=== PATIENT | female | born 1965 | race Caucasian/White ===

== ENCOUNTER 2024-05-23 13:18 | Outpatient (AMB) | payer OTHER, SELFPAY ==
--- NOTE | 2024-05-23 13:31 | A.OFFVIS_ITS ---
Vital Signs 05/23/24 13:32 Height 5 ft 9 in Weight 197 lb BMI 29.1 BP 118/72 Blood Pressure Location Lt brachial Position Sitting Pulse 85 Pulse Source Pulse Oximeter Pulse Oximetry (%) 95 Oxygen Delivery Method Room Air Intake Visit Reasons: Arthritis Intake Note: Patient presents follow up arthritis and looking for specialist H-eds, bilat knee braces, help with muscle spasm and muscle loss Allergies No Known Allergies Allergy (Verified 05/23/24 13:35) HPI HPI Arthritis: Details: She continues to have pain but improvement on diclofenac 50 mg twice a day. She requires crutches to ambulate once a week due to uncontrolled pain. She also has instability in her right knee worse than her left knee and feels that her knees being dislocated. She has been wearing a right medial youth associate brace with benefit. She has not having a regular exercise routine recently. She is working on getting a spa pool. She had an orthopedic surgeon evaluation at [facility] in [place] who recommended to her that he would be willing to operate on her if she is ready. She is concerned that the operation we will not fix the increased laxity in her knees resulting in further surgeries/reconstruction. [facility] Medical History (Updated 05/23/24 @ 21:13 by Speedy Lee MD) H/O mammogram Osteoporosis Raquel-Danlos syndrome Cervicalgia Carpal tunnel syndrome Surgical History H/O colonoscopy Family History Father Colon cancer Mother Melanoma Social History Alcohol intake: current Comment: 3 galsses a week Patient Tobacco Use Status: Former Tobacco user Review of Systems Const All systems reviewed & are unremarkable except as noted in HPI and below Physical Exam Vital Signs: Last Vital Signs Pulse 85 05/23/24 13:32 BP 118/72 05/23/24 13:32 Pulse Ox 95 05/23/24 13:32 Oxygen Delivery Method Room Air 05/23/24 13:32 BMI result Body Mass Index 29.1 Const Other: General: Comfortable CVS: RRR Respiratory: clear to auscultation bilaterally. Good respiratory effort Skin: No lesions seen MSK: Initially she had right knee medial youth associate brace on. Tender to palpate bilateral knees. Good range of motion. Assessment & Plan Assessment & Plan (1) Raquel-Danlos syndrome: Comment: Hypomobile type. Contributing to increased laxity in knees leading to instability. She has had benefit with right medial youth associate brace but it is not the right fit. We discussed importance of having a regular exercise routine for lower extremity strengthening. Code(s): Q79.60 - Arquel-Danlos syndrome, unspecified Category: Medical Plan: Encouraged at least 30 minutes of exercise a day Increased diclofenac 75 mg twice a day Lab up-to-date on long-term NSAID 03/2024 reviewed on patient's portal on her phone. Requesting CMP results I recommend that she start physical therapy for lower extremity strengthening. She has had benefit with massages in the setting of misalignment of her right knee contributing to misalignment in her back radiating to uncontrolled pain. I have given her a new order for PT with myofascial release to help improve pain from instability of right knee. Letter for massage insurance coverage prepared for patient. Prescription for right knee brace medial youth associate given to patient custom to improve fit and knee stability. It is medically necessary. Return to clinic in 3 months (2) Osteoarthritis of knees, bilateral: Comment: Uncontrolled knee pain. Previously failed cortisone injections, Celebrex, meloxicam, gel 1 hyaluronic acid injections in bilateral knees 11/2021 and 07/2022. She has had benefit on diclofenac but pain still limits her ambulation requiring crutches as times. She has had benefit with using right medial youth associate brace. Code(s): M17.0 - Bilateral primary osteoarthritis of knee Category: Medical Qualifiers: Osteoarthritis type: primary Qualified Code(s): M17.0 - Bilateral primary osteoarthritis of knee Plan: Encouraged at least 30 minutes of exercise a day Increased diclofenac 75 mg twice a day with food. Can consider lowering dose in the future if pain is better controlled with regular exercise regimen Lab up-to-date on long-term NSAID 03/2024 reviewed on patient's portal on her phone. Requesting CMP results to be faxed to my office. I recommend that she start physical therapy for lower extremity strengthening. She has had benefit with massages in the setting of misalignment of her right knee contributing to misalignment in her back and uncontrolled pain. I have given her a new order for PT with myofascial release to help improve pain from instability of right knee. Letter for massage insurance coverage prepared for patient. I have given her another prescription for right medial youth associate brace for better fit and improved stability of knee. It is medically necessary. Return to clinic in 3 months Orders: Orders PT Evaluation and Treatment 05/23/24 M17.0 - Bilateral primary osteoarthritis of knee, Q79.60 - Raquel-Danlos syndrome, unspecified Medications: New leg brace (Knee Support Brace) As directed Right knee medial youth associate brace Dx: Ehrler's Danlos Syndrome, osteoarthritis knee 1 ea 0RF diclofenac sodium Take with food 75 mg PO BID 60 tabs 2RF Coding Level of Care Code Est Pt Level 3 (34737) Complex EM visit Add On G2211 Diagnoses Raquel-Danlos syndrome Q79.60 Primary osteoarthritis of both knees M17.0 Osteoarthritis type: primary
[2024-05-23 13:32] VITALS: BP 118/72; PULSE 85; O2SAT 95; BMI 29.1
--- OUTSIDE RECORDS SUMMARY | 2024-05-23 14:25 | XMS_ITS | Data Portability ---
Author Organization JESSIE Bolivar s [address] Address [address] [place] [address] Assessment No assessment recorded. Plan of Treatment Reminders Order Date Submit Date Provider Last Modified By Organization Details Last Modified Time Details Appointments None record ed. Lab None record ed. Referral None record ed. Procedures None record ed. Surgeries None record ed. Imaging None record ed. Medication Orders None record ed. Patient TargetsNo targets recorded. Patient Instructions Encounter Date Encounter Id Patient Instructions Last Modified By Organization Details Last Modified Time 04/16/2023 [id number] sore throat: car e instructions [email or web address] Not available 04/16/2023 09:55:50 Reason for Referral None Reported. Problems Name Problem SNOMED Code Status Onset Date Resolution Date Notes Provider Name and Address Organization Details Recorded Time Raquel-Steven los syndrome 556673455 Active JESSIE Romo [facility] 09:48:41 Problem Notes None recorded. Medical Equipment None Reported. Allergies No known drug allergies Vitals Date Recorded Body height Body mass index (BMI) Body weight Oxygen saturation Oxygen saturation in Arterial blood by Pulse oximetry Pain severity - 0-10 verbal numeric rating [Score] - Reported Heart rate Respiratory rate Body temperature Systolic blood pressure Diastolic blood pressure Provider Name and Address Organization Details Last Updated DateTime 4 175.26 cm 31 kg/m2 07734.4 g 96 % 96 % 0 91 /min 18 /min 98.8 [degF] 133 mm[Hg] 72 mm[Hg] Cielo Polanco [facility] 09:49:38 Social History Question Answer Notes LastModified by Organizat ion Details LastModified Time Tobacco Smoking Status Never Smoker JESSIE Romo [facility] 04/16/2023 09:48:56 What Is Your Level Of Alcohol Consumption? None Information not available 04/16/2023 Are You Currently Employed? Yes Information not available 04/16/2023 Have You Had A Flu Shot This Season? Yes Information not available 04/16/2023 What Is Your Relationship Status? Information not available 04/16/2023 Do You Use Any Illicit Or Recreational Drugs? No Information not available 04/16/2023 Have You Recently Traveled Abroad? No Information not available 04/16/2023 Are You Currently In School? No Information not available 04/16/2023 Do You Or Have You Ever Used Any Other Forms Of Tobacco Or Nicotine? No Information not available 04/16/2023 Sex: Unknown Functional Status None recorded. Mental Status None recorded. Family History Relationship Description Onset Age of this Age Resolved Age Notes LastModified by Organization Details LastModified Time Father No current problems or disability Not available 04/16 09:48:44 Mother No current problems or disability Not available 04/16 09:48:44 Medical History No medical history recorded. Gynecological HistoryNo gynecological history recorded. Obstetrics History GPAL:G 0 P 0 0 0 0 Past Encounters Encounter ID Performer Location Encounter Start Date Encounter Closed Date Diagnosis/Indication Diagnosis SNOMED-CT Code Diagnosis ICD10 Code Diagnosis Note [id number] [address] [place] [address] 10/27/2020 10:00:56 10/27/2020 11:45:42 [id number] [address] [place] [address] 03/11/2021 13:46:51 03/11/2021 15:55:15 [id number] [address] [place] [address] 08/02/2020 18:32:44 08/02/2020 19:44:46 [id number] JESSIE Hackett [address] [place] [address] 04/16/2023 09:43:18 04/16/2023 10:03:49 Sore throat 412512937 J02.9 Based on your Presentati on, Exam, and Lab Testing you are being diagnosed with Pharyngiti s. Most likely your sore throat is being caused by a virus, post nasal drip, or silent acid reflux. The following are my other recommenda tions to help with symptoms and is important for this diagnosis: 1. Take Ibuprofen or Tylenol if you do not have any allergies to these medication s. If you take a blood thinner you should not take NSAIDS like Ibuprofen. These medication will help with the inflammati on in your respirator y tract which should help the cough. (I would alternate between Tylenol 650 mg and your Ibuprofen 600 mg every 4 hours)2. Do not take any Cold Medication s that have a Decongesta nt in it - this will dry out your throat and make the sore throat worse.3. Drinking Hot Tea with honey can help coat and soothe your throat. I would be seen again if you develop any of the following symptoms.1 . Fever > 101.02. Stiff neck - where you can't turn your neck3. Trouble swallowing your saliva - drooling4. Swelling of a lymph node in your throat that is painful to touch5. Difficulty breathing6 . Severe Headache Thank you for using [facility] today, please feel free to contact our office if you have any questions or concerns. Health Concerns Section Related Observation LastModified by Organization Detai ls LastModified Time None Recorded Concern Status LastModified by Organization Details LastModified Time None Recorded Advance Directives Directive None Recorded Payers Encounter Date Sequence Insurance Name Policy Number Policy Ray Covered Member ID Ray Member ID Guarantor Name 08/02/2020 1 [facility] [id number] Criselda Vidal [id number] Criselda Vidal 10/27/2020 1 [facility] [id number] Criselda Vidal [id number] Criselda Vidal 03/11/2021 1 [facility] [id number] Criselda Vidal [id number] Criselda Vidal 04/16/[address] [place] [address] [id number] Criselda Vidal [id number] Criselda Vidal Notes Date Note Type Note Provider Name and Address Organization Details Recorded Time 04/16/2023 text/html 57 y/o female here with L sided tonsil pain x 5 days. She has no other symptoms, no cough, congestion, runny nose. She is concerned maybe one of her pills got stuck there JESSIE Hackett [address] [place], [address], [place] - [facility] 04/16/2023 10:03:53 OBGyn Episode No OBEpisode recorded.
--- OUTSIDE RECORDS SUMMARY | 2024-05-23 14:26 | XMS_ITS | Data Portability ---
Author Organization [facility], , [facility] Address [address] [place] [address] Care Team Providers Care Hot Baller Name Role Phone TOMLUPELORENZO Phys. Med. & Rehab Assessment Encounter Date Assessment Date Assessment LastModified by Organization Details LastModified Time 07/27/2013 07/27/2013 Assessment: with giving outright knee pain? ? ? Patient Goalsfull pain free arom to complete her ADLs without limitation or pain: Clinical Goals:resrtore 5/5 strength and normal flexibility to the right lower extremity? ? ? Treatment Plan: Patient to return 1-2 times per week for 6 weeks. Treatment to Include: hip? ? ? and knee strengthening, flexibility training and a hep jprinzivalli Not available 07/28/2013 06:56:08 08/03/2013 08/03/2013 Assessment: less knee pain , strength is improving , new hep was advanced Patient Goalsfull pain free arom to complete her ADLs without limitation or pain: Clinical Goals:resrtore 5/5 strength and normal flexibility to the right lower extremity? ? ? Treatment Plan: Patient to return 1-2 times per week for 6 weeks. Treatment to Include: hip? ? ? and knee strengthening, flexibility training and a hep jprinzivalli Not available 08/03/2013 14:49:15 Plan of Treatment Reminders Order Date Submit Date Provider Last Modified By Organization Details Last Modified Time Details Appointments None record ed. Lab None record ed. Referral None record ed. Procedures None record ed. Surgeries None record ed. Imaging None record ed. Medication Orders None record ed. Patient TargetsNo targets recorded. Patient InstructionsNo instructions recorded. Reason for Referral None Reported. Results Created Date Observation Date Name Description Value Unit Range Abnormal Flag Note LastModifiedBy Organization Detail LastModifiedTime Result Notes None recorded. Problems Name Problem SNOMED Code Status Onset Date Resolution Date Notes Provider Name and Address Organization Details Recorded Time Cellulitis and abscess of face 953662782 Completed 200403/01/2013 Not Available [facility] 3 02:03:46 Problem Notes None recorded. Procedures Surgical History Date Name Laterality Status Provider Name and Address Organization Details Recorded Time 0 [facility] - Colonoscopy completed Nino Osorio MD [address] [place] [address], [phone], [facility] 03/13/2020 08:24:30 0 Tass[facility] - EGD completed Nino Osorio MD [address] [place] [address], [phone], [facility] 03/13/2020 08:23:31 7 Tassoni - Colonoscopy completed Nino Osorio MD [address] [place] [address], [phone], [facility] 06/08/2016 08:34:38 Imaging Results None recorded. Procedure Notes None recorded. Medical Equipment None Reported. Allergies No known drug allergies Medications Name Sig Start Date Stop Date Status Note LastModified by Organization Details LastModified Time Voltaren active Not Available Not Avai lable Not Available Flonase active Not Available Not Avail able Not Available chlorthalidone active Not Available No t Available Not Available Claritin active Not Available Not Avai lable Not Available Synthroid active Not Available Not Rosanna ilable Not Available liothyronine active Not Available Not Available Not Available cannabidiol (CBD) extract active Not Available Not Availabl e Not Available Vitals None Recorded Social History None recorded. Functional Status None recorded. Mental Status None recorded. Family History Nothing Reported. Medical History No medical history recorded. Gynecological HistoryNo gynecological history recorded. Obstetrics History GPAL:G 0 P 0 0 0 0 Past Encounters Encounter ID Performer Location Encounter Start Date Encounter Closed Date Diagnosis/Indication Diagnosis SNOMED-CT Code Diagnosis ICD10 Code Diagnosis [id number] , [facility] [place] [address] [place] [address] 01/02/2005 12:25:49 01/02/2005 15:41:00 [id number] [place] [facility] [place] [address] [place] [address] 07/27/2013 13:04:57 07/28/2013 08:53:46 Knee pain [id number] [facility], [address] [address] 08/03/2013 14:03:39 08/04/2013 08:22:59 Knee pain 08619274 [id number] Nino Osorio MD [facility], [address] [address] 06/08/2016 07:27:57 06/08/2016 14:20:15 [id number] Dary Wallis RN [facility], [address] [address] 03/13/2020 06:54:56 03/13/2020 12:19:19 Health Concerns Section Related Observation LastModified by Organization Detai ls LastModified Time None Recorded Concern Status LastModified by Organization Details LastModified Time None Recorded Advance Directives Directive None Recorded Payers Encounter Date Sequence Insurance Name Policy Number Policy Ray Covered Member ID Ray Member ID Guarantor Name 01/02/2005 1 [facility]-ID: [facility] [id number] Criselda Vidal [id number] Criselda Vidal 07/27/2013 1 [facility] CARE PLAN (O) Criselda Vidal [id number] Criselda Vidal 08/03/2013 1 [facility] CARE PLAN (O) Criselda Vidal [id number] Criselda Vidal 06/08/[address] [place] [address] [id number] Criselda Vidal [id number] Criselda Vidal 03/13/2020 1 [facility] [id number] Criselda Vidal [id number] Criselda Vidal OBGyn Episode No OBEpisode recorded.
== END 2024-05-23 14:22 | disposition home or self-care (01) ==
PROVIDERS: PCP Family Medicine; Visit Provider Internal Medicine Rheumatology
DX: Q79.60 Ehlers-Danlos syndrome, unspecified (principal); M17.0 Bilateral primary osteoarthritis of knee
CPT/HCPCS: 99213

== ENCOUNTER 2024-10-26 12:59 | Outpatient (REF) | payer OTHER, SELFPAY ==
[2024-10-26 17:58] LABS: Aspartate Amino Transferase 30 U/L (5-31); Estimated Glomerular Filt Rate > 60
[2024-10-26 18:18] LABS: Alanine Aminotransferase 34 U/L (0-31)
== END 2024-10-26 13:00 | disposition home or self-care (01) ==
LOC: HO.HKASLDS 12:59
PROVIDERS: PCP Family Medicine; Visit Provider Internal Medicine Rheumatology
DX: Q79.60 Ehlers-Danlos syndrome, unspecified (principal); M17.0 Bilateral primary osteoarthritis of knee; Z79.1 Long term (current) use of non-steroidal anti-inflammatories (NSAID)
CPT/HCPCS: 36415; 82565; 84450; 84460

== ENCOUNTER 2024-10-26 12:59 | Outpatient (AMB) | payer OTHER, SELFPAY ==
[2024-10-26 13:01] VITALS: BP 120/64; PULSE 97; O2SAT 94; BMI 29.5
--- NOTE | 2024-10-26 13:01 | A.OFFVIS_ITS ---
Vital Signs 10/26/24 13:01 Height 5 ft 9 in Weight 200 lb BMI 29.5 BP 120/64 Blood Pressure Location Lt brachial Position Sitting Pulse 97 Pulse Source Pulse Oximeter Pulse Oximetry (%) 94 Oxygen Delivery Method Room Air Intake Visit Reasons: follow up Intake Note: Patient presents for follow up visit today complains of joint instability. Accompanied by: Self / Same As Patient Allergies No Known Allergies Allergy (Verified 10/26/24 13:05) HPI HPI follow up: Details: She was having benefit with diclofenac but there are days where pain is not relieved when she takes diclofenac 75 mg b.i.d.. She is in the process of getting right knee brace. She has been swimming more. Elbows dislocate when she turns lying down. She also has not numbness in her arms when it occurs. It relocates with positional changes. When she is standing for prolonged period of time she notices that right knee cap will move inches. She returned from a trip in [place] where she use crutches to ambulate. [facility] Medical History (Updated 10/26/24 @ 13:53 by Speedy Lee MD) H/O mammogram Osteoporosis Raquel-Danlos syndrome Cervicalgia Carpal tunnel syndrome Surgical History H/O colonoscopy Family History Father Colon cancer Mother Melanoma Social History Alcohol intake: current Comment: 3 galsses a week Patient Tobacco Use Status: Former Tobacco user Physical Exam Vital Signs: Last Vital Signs Pulse 97 10/26/24 13:01 BP 120/64 10/26/24 13:01 Pulse Ox 94 10/26/24 13:01 Oxygen Delivery Method Room Air 10/26/24 13:01 BMI result Body Mass Index 29.5 Const Other: General: Comfortable Skin: No lesions seen MSK: Right patellar laxity noted. Tender to palpate bilateral knees. Good range of motion of upper extremities. Assessment & Plan Assessment & Plan (1) Raquel-Danlos syndrome: Comment: Hypomobile type. Contributing to increased laxity in knees leading to instability. She has had benefit with right medial accounts payable clerk brace but it is not the right fit. She is in the process of getting another knee brace customized. She is having elbow dislocations with turning when lying down. I recommended PT for strengthening, which she declined. She will focus on home exercise program for upper and lower extremity strengthening. Code(s): Q79.60 - Raquel-Danlos syndrome, unspecified Category: Medical Plan: Encouraged at least 30 minutes of exercise a day Change diclofenac to nabumetone 500 mg b.i.d. Labs for drug monitoring on chronic NSAID ordered Continue to brace right knee. She is working on getting right knee brace customized due to patellar instability, which is medically necessary for patient Return to clinic in 3 months (2) custodial (current) use of non-steroidal anti-inflammatories (nsaid): Code(s): Z79.1 - custodial (current) use of non-steroidal anti-inflammatories (NSAID) Category: Medical Plan: Labs for drug monitoring on chronic NSAID ordered (3) Osteoarthritis of knees, bilateral: Comment: Uncontrolled knee pain. Previously failed cortisone injections, Celebrex, meloxicam, diclofenac, gel 1 hyaluronic acid injections in bilateral knees 11/2021 and 07/2022. She uses crutches to ambulate at times. She has had benefit with using right medial accounts payable clerk brace. Code(s): M17.0 - Bilateral primary osteoarthritis of knee Category: Medical Qualifiers: Osteoarthritis type: primary Qualified Code(s): M17.0 - Bilateral primary osteoarthritis of knee Plan: Encouraged at least 30 minutes of exercise a day Changing diclofenac to nabumetone 500 mg b.i.d. Labs for drug monitoring on chronic NSAID ordered She is working on obtaining right medial accounts payable clerk brace. It is medically necessary. Return to clinic in 3 months Orders: Orders Creatinine Today Z79.1 - termite exterminator (current) use of non-steroidal anti- inflammatories (NSAID) Aspartate Amino Transferase Today Z79.1 - custodial (current) use of non- steroidal anti-inflammatories (NSAID) Alanine Aminotransferase Today Z79.1 - termite exterminator (current) use of non-steroidal anti-inflammatories (NSAID) Medications: New nabumetone Replace diclofenac. Take with food. 500 mg PO BID 60 tabs 2RF Discontinued diclofenac sodium Take with food Discontinued Reason: Doctor's Order 75 mg PO BID 60 tabs 2RF Coding Level of Care Code Est Pt Level 3 (71363) Complex EM visit Add On G2211 Diagnoses Raquel-Danlos syndrome Q79.60 termite exterminator (current) use of non-steroidal anti-inflammatories (nsaid) Z79.1 Primary osteoarthritis of both knees M17.0 Osteoarthritis type: primary
--- OUTSIDE RECORDS SUMMARY | 2024-10-26 13:28 | XMS_ITS | Data Portability ---
Author Organization JESSIE Bolivar [facility]gan [address] Address [address] [place] [address] Assessment No assessment recorded. Plan of Treatment [...] By Organization Details Last Modified Time 04/16/2023 [id number] sore throat: car e instructions [email or web address] Not available 04/16/2023 09:55:50 Reason for Referral None Reported. 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 Medical Equipment None Reported. Allergies No known drug allergies Vitals Date Recorded Body height Body mass index (BMI) Body weight Oxygen saturation Oxygen saturation in Arterial blood by Pulse oximetry Heart rate Respiratory rate Body temperature Systolic And Diastolic Provider Name and Address Organization Details Last Updated DateTime 175.26 cm 31 kg/m2 42575.4 g 96 % 96 % 91 /min 18 /min 98.8 [degF] 133/72 mm[Hg] Cielo Polanco [facility] 09:49:38 Social History Question Answer Notes LastModified by Organizat ion Details LastModified Time Tobacco Smoking Status Never Smoker JESSIE Romo [facility] 04/16/2023 09:48:56 Have You Had A Flu Shot This Season? Yes Information not available 04/16/2023 What Is Your Relationship Status? Information not available 04/16/2023 Have You Recently Traveled Abroad? No Information not available 04/16/2023 Are You Currently In School? No Information not available 04/16/2023 Sex: Unknown Functional Status Question Answer Note LastModified by Organizat ion Details LastModified Time Do you use any illicit or recreational drugs? No Information not available 04/16/2023 Do you or have you ever used any other forms of tobacco or nicotine? No Information not available 04/16/2023 What is your level of alcohol consumption? None Information not available 04/16/2023 Are you currently employed? Yes Information not available 04/16/2023 Mental Status None recorded. Family History Relationship [...] SNOMED-CT Code Diagnosis ICD10 Code Diagnosis Note [id number] [address] [place] [address] 10/27/2020 10:00:56 10/27/2020 11:45:42 [id number] 20999[address] [place] [address] 03/11/2021 13:46:51 03/11/2021 15:55:15 [id number] [address] [place] [address] 08/02/2020 18:32:44 08/02/2020 19:44:46 [id number] JESSIE Hackett [address] [place] [address] 04/16/2023 09:43:18 04/16/2023 10:03:49 Sore throat [id number] J02.9 Based on your Presentati on, Exam, [...] . Severe Headache Thank you for using [facility] today, please feel free to contact our office if you have any questions or concerns. Health Concerns Section Related Observation LastModified by Organization James jane LastModified Time None Recorded Concern Status LastModified by Organization Details LastModified Time None Recorded Advance Directives Directive None Recorded Payers Insurance Date Sequence Insurance Name Policy Number Policy Ray Covered Member ID Ray Member ID Guarantor Name 04/16/[address] [place] [address] [id number] Criselda Vidal [id number] Criselda Vidal Notes Date Note Type Note Provider Name and Address Organization Details Recorded Time 04/16/2023 text/html 57 y/o female here with L sided tonsil pain x 5 days. She has no other symptoms, no cough, congestion, runny nose. She is concerned maybe one of her pills got stuck there JESSIE Hackett [address] [place], [address], [place] - [facility] 04/16/2023 10:03:53 OBGyn Episode No OBEpisode recorded.
== END 2024-10-26 13:46 | disposition home or self-care (01) ==
LOC: HO.RHES 12:59
PROVIDERS: PCP Family Medicine; Visit Provider Internal Medicine Rheumatology
DX: Q79.60 Ehlers-Danlos syndrome, unspecified (principal); Z79.1 Long term (current) use of non-steroidal anti-inflammatories (NSAID); M17.0 Bilateral primary osteoarthritis of knee
CPT/HCPCS: 99213; G2211

== ENCOUNTER 2025-02-14 14:14 | Outpatient (AMB) | payer OTHER, SELFPAY ==
--- OUTSIDE RECORDS SUMMARY | 2025-02-14 08:26 | XMS_ITS | Encounter Summary ---
Author Organization [facility] Address [address] [place] [address] Phone Care Team Providers Care Mixing Operator Name Role Phone Merna Mills MD Unavailable [phone] Nati Minor MD Unavailable [phone] Enriqueta Zhu MD Primary Care Provider [phone] Encounter Details Date Type Department Care Team (Late st Contact Info) Description 02/14/2025 8:26 AM EST Hospital Encounter [facility], X-Ray - [address] [place] [address] Kristal Fernando, [address] [place] [address] [email or web address] Arrived Social History Tobacco Use Types Packs/Day Years Used Date Smoking Tobacco: Former Cigarettes Q uit: 01/25/1989 Smokeless Tobacco: Never Alcohol Use Standard Drinks/Week Comments Yes 2 (1 standard drink = 0.6 oz pur e alcohol) x2 per week Child or Family Care Answer Date Record ed Do you have problems with on e of the following making it difficult for you to work, study, or receive health care? No 05/06/2022 Education Answer Date Recorded Are you interested in more education? Not on lisandra e 05/06/2024 Are you concerned about learning? Not on file 05/06/2024 No 05/06/2024 No 05/06/2024 Food Answer Date Recorded Within the past 6 months we worried whether our food would run out before we got money to buy more. Never True 08/28/2024 Within the past 6 months the food we bought just didn't last and we didn't have enough money to get more. Never True Residential Stability Answer Date Recor ded What is your housing situation today? I have kimberly scherer 08/28/2024 How many times have you move d in the past 12 months? Zero (I did not move) 08/28/2024 Paying for Meds Answer Date Recorded Do you have trouble paying for medicines? No 08/28/2024 Paying Utility Bills Answer Date Record ed Do you have trouble paying your heating or elect ricity bill? No 08/28/2024 Transportation Answer Date Recorded Has the lack of transportati on kept you from medical appointments or from getting medications? No 08/28/2024 Unemployment Answer Date Recorded Are you currently unemployed or working on a part-time or temporary basis, and looking for work? No 05/06/2022 Digital Access Answer Date Recorded No 08/28/2024 Yes 08/28/2024 Do you have reliable internet access at home? Ye s 08/28/2024 Do you have a device (e.g., phone, tablet, computer) with a working camera? Yes 08/28/2024 Intimate Partner Violence Answer Date R ecorded Are you denied basic needs s [facility] as food, clothing, or medical care? No 08/28/2024 In the past 12 months have y ou been in a relationship with a person who hurts, threatens, or tries to control you? No 08/28/2024 Are you denied basic needs s [facility] as food, clothing, or medical care? No 08/28/2024 In the past 12 months have y ou been in a relationship with a person who hurts, threatens, or tries to control you? No 08/28/2024 Comments No Sex and Gender Information Value Date Recorded Sex Assigned at Not on file Legal Sex Female 9:38 PM EDT Gender Identity Not on file Sexual Orientation Not on file documented as of this encounter Plan of Treatment Not on file documented as of this encounter Procedures Procedure Name Priority Date/Time Associated Diagnosis Comments XR CERVICAL SPINE 4-5 VIEWS Routine 02/14/2025 8:50 AM EST Cervical radiculopathy documented in this encounter Results * XR CERVICAL SPINE 4-5 VIEWS (02/14/2025 8:50 AM EST) Anatomical Region Laterality Modality C-spine Computed Radiogr aphy 02/14/2025 3:37 PM EST Impressions 02/14/2025 3:43 PM EST S/P multilevel ACDF from C2-C5. Hardware components are without significant interval change compared to radiographic appearance on the study of 10/19/2022, with some disruption of the hardware components at C4-5 and C5-6. Mild chronic sclerosis of the C4 and C5 vertebra and minor lucency adjacent to some of the hardware components particularly at the C5 level, to a lesser degree at the C6 and C4 levels, without significant change from prior study. Stable endplate changes and moderate diffuse facet arthropathy. Minimal anterolisthesis at C2-3 and mild retrolisthesis at C5-6 as seen on the neutral and flexion views, which appears to partially normalize on the extension view. Narrative 02/14/2025 3:43 PM EST XR CERVICAL SPINE 4-5 VIEWS Referring clinician's provided indication for this examination in [facility]: Pain; has hardware in neck with cervical radiculopathy COMPARISON: None Procedure Note Richard Salazar MD - 02/14/2025 XR CERVICAL SPINE 4-5 VIEWS Referring clinician's provided indication for this examination in [facility]:Pain; has hardware in neck with cervical radiculopathy COMPARISON: None IMPRESSION: S/P multilevel ACDF from C2-C5. Hardware components are withoutsignificant interval change compared to radiographic appearance on thestudy of 10/19/2022, with some disruption of the hardware components atC4-5 and C5-6. Mild chronic sclerosis of the C4 and C5 vertebra and minorlucency adjacent to some of the hardware components particularly at the K8ncqap, to a lesser degree at the C6 and C4 levels, without significantchange from prior study. Stable endplate changes and moderate diffusefacet arthropathy. Minimal anterolisthesis at C2-3 and mild retrolisthesisat C5-6 as seen on the neutral and flexion views, which appears topartially normalize on the extension view. Kristal Fernando METAL BUFFER IMG XR SPINE Fin al Result documented in this encounter Visit Diagnoses Diagnosis Cervical radiculopathy Brachial neuritis or radiculitis nos documented in this encounter Additional Health Concerns Infection Onset Date Last Indicated Resolved Time Resp-Risk 02/14/2025 02/14/2025 Assessment Noted Time PHQ-2 Depression Total Score: 0 10/27/19 4:53 PM EDT documented as of this encounter Care Teams Mixing Operator Relationship Specialty Start Date End Date Enriqueta Zhu MD [address] [place] [address] [address] [place] [address] PCP - General Family Medicine 11/14/24 Merna Mills MD [address] [place] [address] Family Medicine 12/29/17 Nati Minor MD [address] [place] [address], [address] [place] [address] Historical LMR Provider 01/27/17 documented as of this encounter Additional Source Comments The information contained in this document represents components of the legal health record. It is not the complete legal health record.[facility]
--- NOTE | 2025-02-14 14:15 | A.OFFVIS_ITS ---
Vital Signs 02/14/25 14:21 BP 130/80 Blood Pressure Location Rt brachial Position Sitting Pulse 91 Pulse Source Pulse Oximeter Pulse Oximetry (%) 95 Oxygen Delivery Method Room Air Intake Visit Reasons: follow up Intake Note: Patient presents for follow up visit today complains of joint instability. Accompanied by: Self / Same As Patient Allergies No Known Allergies Allergy (Verified 02/14/25 14:28) HPI HPI follow up: Details: Hands are numb and weak. She has pain in bases of thumb. 6 months of hand pain. Hand numbness since 2019 neck surgery. She was diagnosed with carpal tunnel syndrome at [facility] with EMGs revealing bilateral median neuropathy April 2028. She wore wrist braces but not for a long time. Her her legs are weak. She is not consistent with her home exercise program. She is wearing right knee brace with benefit. When she takes it off she feels the weakness. 02/07/2025 labs reveal normal creatinine, mild elevation in ALT 33 and normal AST. [facility] Medical History H/O mammogram Osteoporosis Raquel-Danlos syndrome Cervicalgia Carpal tunnel syndrome Surgical History H/O colonoscopy Family History Father Colon cancer Mother Melanoma Social History Alcohol intake: current Comment: 3 galsses a week Patient Tobacco Use Status: Former Tobacco user Physical Exam Vital Signs: Last Vital Signs Pulse 91 02/14/25 14:21 BP 130/80 02/14/25 14:21 Pulse Ox 95 02/14/25 14:21 Oxygen Delivery Method Room Air 02/14/25 14:21 Const Other: General: Comfortable Skin: No lesions seen MSK: Tender to palpate 2nd MCP without any synovitis. She has squaring of bilateral CMCs with tenderness on palpation. Strong piccolo mechanic. Assessment & Plan Assessment & Plan (1) Bilateral hand pain: Comment: Due to osteoarthritis and carpal tunnel syndrome. We discussed conservative management. Code(s): M79.641 - Pain in right hand; M79.642 - Pain in left hand Category: Medical Plan: OT ordered Hand x-rays ordered Continue diclofenac 75 mg b.i.d. Can consider CMC cortisone injections next visit Wear wrist braces at night. Prescription given to patient Requesting records of EMG from April 2023 and recent labs from [facility] Return to clinic in 3 months (2) Osteoarthritis of carpometacarpal (CMC) joint of both thumbs: Code(s): M18.0 - Bilateral primary osteoarthritis of first carpometacarpal joints Category: Medical Plan: See above (3) Bilateral carpal tunnel syndrome: Code(s): G56.03 - Carpal tunnel syndrome, bilateral upper limbs Category: Medical Plan: See above (4) Osteoarthritis of knees, bilateral: Comment: Pain is controlled with diclofenac 75 mg b.i.d. and right medial school social worker brace. Previously failed cortisone injections, Celebrex, meloxicam, diclofenac, gel 1 hyaluronic acid injections in bilateral knees 11/2021 and 07/2022. We reviewed her recent x-rays, which reveal severe degenerative joint disease of right knee. Code(s): M17.0 - Bilateral primary osteoarthritis of knee Category: Medical Qualifiers: Osteoarthritis type: primary Qualified Code(s): M17.0 - Bilateral primary osteoarthritis of knee Plan: Encouraged at least 30 minutes of exercise a day Continue diclofenac 75 mg b.i.d. Labs for drug monitoring on chronic NSAID up-to-date Continue to wear right medial school social worker brace Restart home exercise program. If lower extremity strength is not improve by next visit, she will be agreeable to start physical therapy. Return to clinic in 3 months (5) Raquel-Danlos syndrome: Comment: Hypermobile type. Contributing to increased laxity in knees leading to instability. She has had benefit with right medial school social worker brace. She feels weak in her lower extremities but has not been consistent with home exercise program. Code(s): Q79.60 - Raquel-Danlos syndrome, unspecified Category: Medical Plan: She will resume her home exercise program including using her warm tub for swimming. Encouraged at least 30 minutes of exercise a day Continue diclofenac 75 mg b.i.d. Labs for drug monitoring on chronic NSAID up-to-date Continue to brace right knee. If she does not have benefit in improving lower extremity strength with home exercise program, I will order PT next visit Return to clinic in 3 months (6) exterminator helper termite (current) use of non-steroidal anti-inflammatories (nsaid): Code(s): Z79.1 - [facility] (current) use of non-steroidal anti-inflammatories (NSAID) Category: Medical Plan: See above Orders: Orders Alanine Aminotransferase Today Z79.1 - [facility] (current) use of non-steroidal anti-inflammatories (NSAID) XR Hand Bilat min 3v Today M79.641 - Pain in right hand, M79.642 - Pain in left hand OT Evaluation and Treatment Today G56.03 - Carpal tunnel syndrome, bilateral upper limbs, M18.0 - Bilateral primary osteoarthritis of first carpometacarpal joints Aspartate Amino Transferase Today Z79.1 - exterminator helper termite (current) use of non- steroidal anti-inflammatories (NSAID) Creatinine Today Z79.1 - exterminator helper termite (current) use of non-steroidal anti- inflammatories (NSAID) Medications: New arm brace (Wrist Brace) Bilateral cockup wrist braces DX: carpal tunnel syndrome 2 ea 0RF Changed From diclofenac sodium To replace Nabumetone RX. Take with Food 75 mg PO BID 60 tabs 2RF To diclofenac sodium 75 mg PO BID 180 tabs 1RF 90 days Coding Level of Care Code Est Pt Level 4 (00049) Complex EM visit Add On G2211 Diagnoses Bilateral hand pain M79.641; M79.642 Osteoarthritis of carpometacarpal (CMC) joint of both thumbs M18.0 Bilateral carpal tunnel syndrome G56.03 Primary osteoarthritis of both knees M17.0 Osteoarthritis type: primary Raquel-Danlos syndrome Q79.60 [facility] (current) use of non-steroidal anti-inflammatories (nsaid) Z79.1
[2025-02-14 14:21] VITALS: BP 130/80; PULSE 91; O2SAT 95
--- OUTSIDE RECORDS SUMMARY | 2025-02-14 17:27 | XMS_ITS | Encounter Summary ---
Author Organization [facility] Address [address] [facility] [address] [place] [address] Phone Care Team Providers Care Technical Recruiter Name Role Phone Merna Mills MD Primary Care Provider + Merna Mills MD Unavailable [phone] Nati Minor MD Unavailable Enriqueta Zhu MD Primary Care Provider [phone] Enriqueta Zhu MD Primary Care Provider [phone] Encounter Details Date Type Department Care Team (Latest Contact Info) Description 03/06/2020 Transcribe Orders Virtual Department [address] [place] [address] Nino Osorio MD [address] [place] [address] [phone] [email or web address] Encounter for preprocedure screening laboratory testing for COVID-19 (Primary Dx) Social History Tobacco Use Types Packs/Day Years Used Date Smoking Tobacco: Former Cigarettes Q uit: 01/25/1989 Smokeless Tobacco: Never Alcohol Use Standard Drinks/Week Comments Yes 2 (1 standard drink = 0.6 oz pur e alcohol) x2 per week Comments No Sex and Gender Information Value Date Recorded Sex Assigned at Not on file Legal Sex Female 9:38 PM EDT Gender Identity Not on file Sexual Orientation Not on file documented as of this encounter Plan of Treatment Not on file documented as of this encounter Results * COVID-19 PCR Order (03/11/2020 7:13 AM EST) COVID-19 Comment [id number] [facility] COVID Testing Status Sent to [facility] Other 03/11/2020 7:13 AM EST 03/11/2020 10:55 AM EST us Nino Osorio MD LAB GENERAL ORDERABLES Final Result Performing Organization Address City/State/[facility] Co de Phone Number [facility] [address] [place] [address] documented in this encounter Visit Diagnoses Diagnosis Encounter for preprocedure screening laboratory testing for COVID-19- Primary documented in this encounter Additional Health Concerns Infection Onset Date Last Indicated Resolved Time Resp-Risk 02/14/2025 02/14/2025 documented as of this encounter Care Teams Technical Recruiter Relationship Specialty Start Date End Date Merna Mills MD [address] [place] [id number] [email or web address] PCP - General Family Medicine 12/29/17 05/06/22 Enriqueta Zhu MD [address] [place] [address] [email or web address] PCP - General Family Medicine 05/07/22 11/13/24 Enriqueta Zhu MD [address] [place] [address] [email or web address] PCP - General Family Medicine 11/14/24 Merna Mills MD [address] [place] [address] [email or web address] Family Medicine 12/29/17 Nati Minor MD [address] [place] [address], [address] [place] [address] [email or web address] Historical LMR Provider 01/27/17 documented as of this encounter Additional Source Comments The information contained in this document represents components of the legal health record. It is not the complete legal health record.[facility]
--- OUTSIDE RECORDS SUMMARY | 2025-02-14 17:27 | XMS_ITS | Encounter Summary ---
Author Organization [facility] Address [address] [facility] ([place] [place] [address] [place] [address] Phone Care Team Providers Care Fountain Pen Nibs Inspector Name Role Phone Merna Mills MD Primary Care Provider + Merna Mills MD Unavailable [phone] Nati Minor MD Unavailable [phone] Enriqueta Zhu MD Primary Care Provider [phone] Enriqueta Zhu MD Primary Care Provider [phone] Encounter Details Date Type Department Care Team (Late st Contact Info) Description 02/04/2021 Transcribe Orders Virtual Department [address] [place] [address] Merna Mills MD [address] [place] [id number] Right knee pain, unspecified chronicity (Primary Dx); Left knee pain, unspecified chronicity Social History Tobacco Use Types Packs/Day Years [...] as of this encounter Plan of Treatment Scheduled Orders Name Type Priority Associated Diagnoses Orde r Schedule XR Knee (Left) Imaging Routine Right knee pain, unspecified chronicity Left knee pain, unspecified chronicity Expected: 02/04/2021, Expires: 02/04/2022 documented as of this encounter Visit Diagnoses Diagnosis Right knee pain, unspecified chronicity- Primary Left knee pain, unspecified chronicity documented in this encounter Additional Health Concerns Infection Onset Date Last Indicated Resolved Time Resp-Risk 02/14/2025 02/14/2025 documented as of this encounter Care Teams Fountain Pen Nibs Inspector Relationship Specialty Start Date End Date Merna Mills MD [address] [place] [address] [email or web address] PCP - General Family Medicine 12/29/17 05/06/22 Enriqueta Zhu MD [address] [place] [address] [address] [place] [address] [email or web address] PCP - General Family Medicine 05/07/22 11/13/24 Enriqueta Zhu MD [address] [place] [address] [address] [place] [address] [email or web address] PCP - General Family Medicine 11/14/24 Merna Mills MD [address] [place] [phone] Family Medicine 12/29/17 Nati Minor MD [address] [place] [address], [address] [place] [address] [email or web address] Historical LMR Provider 01/27/17 documented as of this encounter Additional Source Comments The information contained in this document represents components of the legal health record. It is not the complete legal health record.[facility]
--- OUTSIDE RECORDS SUMMARY | 2025-02-14 17:27 | XMS_ITS | Encounter Summary ---
Author Organization [facility] Address [address] [facility] [address] [place] [address] Phone Care Team Providers Care Electronic Equipment Repairmen Name Role Phone Merna Mills MD Primary Care Provider + Merna Mills MD Unavailable [phone] Nati Minor MD Unavailable [phone] Enriqueta Zhu MD Primary Care Provider [phone] Enriqueta Zhu MD Primary Care Provider [phone] Encounter Details Date Type Department Care Team (Late st Contact Info) Description 08/15/2019 Transcribe Orders Virtual Department [address] [place] [address] Zackary Olvera MD [address] [place] [address] [email or web address] Social History Tobacco Use Types Packs/Day Years [...] on file documented as of this encounter Visit Diagnoses Not on filedocumented in this encounter Additional Health Concerns Infection Onset Date Last Indicated Resolved Time Resp-Risk 02/14/2025 02/14/2025 documented as of this encounter Care Teams Electronic Equipment Repairmen Relationship Specialty Start Date End Date Merna Mills MD [address] [place] [address] PCP - General Family Medicine 12/29/17 05/06/22 Enriqueta Zhu MD [address] [place] [address] 7 [place] [address] [email or web address] PCP - General Family Medicine 05/07/22 11/13/24 Enriqueta Zhu MD [address] [place] [address] [email or web address] PCP - General Family Medicine 11/14/24 Merna Mills MD [address] [place] [address] [email or web address] Family Medicine 12/29/17 Nati Minor MD [address] [place] [address], [address] [place] [address] Historical LMR Provider 01/27/17 documented as of this encounter Additional Source Comments The information contained in this document represents components of the legal health record. It is not the complete legal health record.[facility]
--- OUTSIDE RECORDS SUMMARY | 2025-02-14 17:27 | XMS_ITS | Encounter Summary ---
Author Organization [facility] Address [address] [facility] [address] [place] [address] Phone Care Team Providers Care Shredded Filler Cigar Maker Machine Name Role Phone Merna Mills MD Primary Care Provider + Merna Mills MD Unavailable [phone] Nati Minor MD Unavailable [phone] Enriqueta Zhu MD Primary Care Provider [phone] Enriqueta Zhu MD Primary Care Provider [phone] Encounter Details Date Type Department Care Team (Late st Contact Info) Description 02/04/2021 Ancillary Orders Virtual Department [address] [place] [address] Merna Mills MD [address] [place] [address] [email or web address] Right knee pain, unspecified chronicity; Left knee pain, unspecified chronicity Social History [...] documented as of this encounter Results * XR KNEE 4 OR MORE VIEWS (BILATERAL) (02/04/2021 3:33 PM EDT) Anatomical Region Laterality Modality Knee Bilateral, Knee Right, Knee Left Computed Radiography 02/04/2021 7:02 PM EDT Impressions 02/04/2021 7:06 PM EDT Left: Minimal degenerative changes, not significantly progressed from 2020. Right: Tricompartmental degenerative changes. Moderate joint space narrowing of the medial compartment. Not significantly progressed from 2020. Narrative 02/04/2021 7:06 PM EDT XR KNEE 4 OR MORE VIEWS (BILATERAL) COMPARISON: Radiographs of the bilateral knees on June 07, 2019 FINDINGS: Left Knee: No fracture. Normal alignment. Normal joint spaces. Prominent patellar spurring. Tiny spurring in the medial and lateral femorotibial compartments. No effusion. Right Knee: No fracture. Normal alignment. Narrowing of the medial femorotibial joint space results in knee varus. Tricompartmental osteophyte formation. No effusion. Procedure Note Hamlet Burch MD - 02/04/2021 XR KNEE 4 OR MORE VIEWS (BILATERAL) COMPARISON: Radiographs of the bilateral knees on June 07, 2019 FINDINGS: Left Knee: No fracture. Normal alignment. Normal joint spaces. Prominentpatellar spurring. Tiny spurring in the medial and lateral femorotibialcompartments. No effusion. Right Knee: No fracture. Normal alignment. Narrowing of the medialfemorotibial joint space results in knee varus. Tricompartmentalosteophyte formation. No effusion. IMPRESSION: Left: Minimal degenerative changes, not significantly progressed [id number]. Right: Tricompartmental degenerative changes. Moderate joint spacenarrowing of the medial compartment. Not significantly progressed [id number]. Merna Mills MD IMG XR LOWER EXTREMITY F inal Result documented in this encounter Visit Diagnoses Diagnosis Right knee pain, unspecified chronicity Left knee pain, unspecified chronicity Right knee pain, unspecified chronicity Left knee pain, unspecified chronicity documented in this encounter Additional Health Concerns Infection Onset Date Last Indicated Resolved Time Resp-Risk 02/14/2025 02/14/2025 documented as of this encounter Care Teams Shredded Filler Cigar Maker Machine Relationship Specialty Start Date End Date Merna Mills MD [address] [place] [address] PCP - General Family Medicine 12/29/17 05/06/22 Enriqueta Zhu MD [address] [place] [address] 7 [place] [address] [email or web address] PCP - General Family Medicine 05/07/22 11/13/24 Enriqueta Zhu MD [address] [place] [address] [email or web address] PCP - General Family Medicine 11/14/24 Merna Mills MD [address] [place] [address] Family Medicine 12/29/17 Nati Minor MD [address] [place] [address], [address] [place] [address] [email or web address] Historical LMR Provider 01/27/17 documented as of this encounter Additional Source Comments The information contained in this document represents components of the legal health record. It is not the complete legal health record.[facility]
--- OUTSIDE RECORDS SUMMARY | 2025-02-14 17:27 | XMS_ITS | Encounter Summary ---
Author Organization [facility] Address [address] [facility] [address] [place] [address] Phone Care Team Providers Care Charge Master Analyst Name Role Phone Merna Mills MD Primary Care Provider + Merna Mills MD Unavailable Nati Minor MD Unavailable [phone] Enriqueta Zhu MD Primary Care Provider [phone] Enriqueta Zhu MD Primary Care Provider [phone] Encounter Details Date Type Department Care Team (Late st Contact Info) Description 09/19/2020 Ancillary Orders [facility], X-Ray - [address] [place] [address] Merna Mills MD [address] [place] [address] [email or web address] Hand pain, left Social History Tobacco Use Types Packs/Day Years [...] as of this encounter Results * XR HAND 3 OR MORE VIEWS (LEFT) (09/19/2020 11:46 AM EDT) Anatomical Region Laterality Modality Hand Left Computed Radiogr aphy 09/19/2020 11:5 1 AM EDT Impressions 09/19/2020 11:52 AM EDT No acute fracture. Narrative 09/19/2020 11:52 AM EDT HISTORY: As above. COMPARISON: Left hand x-rays 12/10/2015. LEFT HAND RADIOGRAPH FINDINGS: 3 images obtained. No acute fracture or malalignment. Joint spaces are preserved. No destructive or suspicious bone lesions. No soft tissue swelling. Procedure Note Kike Gallegos MD - 09/19/2020 HISTORY: As above. COMPARISON: Left hand x-rays 12/10/2015. LEFT HAND RADIOGRAPH FINDINGS: 3 images obtained. No acute fracture or malalignment. Joint spaces are preserved. Nodestructive or suspicious bone lesions. No soft tissue swelling. IMPRESSION: No acute fracture. us Merna Mills MD IMG XR UPPER EXTREMITY F inal Result documented in this encounter Visit Diagnoses Diagnosis Hand pain, left Pain in soft tissues of limb Hand pain, left Pain in soft tissues of limb documented in this encounter Additional Health Concerns Infection Onset Date Last Indicated Resolved Time Resp-Risk 02/14/2025 02/14/2025 documented as of this encounter Care Teams Charge Master Analyst Relationship Specialty Start Date End Date Merna Mills MD [address] [place] [address] PCP - General Family Medicine 12/29/17 05/06/22 Enriqueta Zhu MD [address] [place] [address], [address] [place] [address] PCP - General Family Medicine 05/07/22 11/13/24 Enriqueta Zhu MD [address] [place] [address] [address] [place] [address] [email or web address] PCP - General Family Medicine 11/14/24 Merna Mills MD [address] [place] [address] [email or web address] Family Medicine 12/29/17 Nati Minor MD [address] [place] [address], [address] [place] [address] [email or web address] Historical LMR Provider 01/27/17 documented as of this encounter Additional Source Comments The information contained in this document represents components of the legal health record. It is not the complete legal health record.[facility]
--- OUTSIDE RECORDS SUMMARY | 2025-02-14 17:28 | XMS_ITS | Encounter Summary ---
Author Organization [facility] Address [address] [place] [address] Phone Care Team Providers Care Web Marketing Coordinator Name Role Phone Merna Mills MD Unavailable [phone] Nati Minor MD Unavailable [phone] Enriqueta Zhu MD Primary Care Provider [phone] Enriqueta Zhu MD Primary Care Provider [phone] Encounter Details Date Type Department Care Team (Late st Contact Info) Description 03/13/2024 Procedure Pass OR Admitting Dept - Virtual Department [address] [place], [place] [id number] Social History Tobacco Use Types Packs/Day Years [...] Answer Date Recorded Are you interested in help w ith more adult education (for example, completing high school, GED, job training, learning the Swedish language, technical skills, or developing parenting skills)? No 05/06/2022 Food Answer Date Recorded Within the past 6 months we worried whether our food would run out before we got money to buy more. Never True 05/06/2022 Within the past 6 months the food we bought just didn't last and we didn't have enough money to get more. Never True Residential Stability Answer Date Recor ded What is your housing situation today? I have kimberly scherer 05/06/2022 How many times have you move d in the past 12 months? Zero (I did not move) 05/06/2022 Paying for Meds Answer Date Recorded Do you have trouble paying for medicines? No 05/06/2022 Paying Utility Bills Answer Date Record ed Do you have trouble paying your heating or elect ricity bill? No 05/06/2022 Transportation Answer Date Recorded Has the lack of transportati on kept you from medical appointments or from getting medications? No 05/06/2022 Unemployment Answer Date Recorded Are you currently unemployed or working on a part-time or temporary basis, and looking for work? No 05/06/2022 Digital Access Answer Date Recorded No 09/07/2022 No 09/07/2022 Reliable internet access at home? Not on file 09/07/2022 Device with a working camera? Not on file Comments No Sex and Gender Information Value [...] documented as of this encounter Care Teams Web Marketing Coordinator Relationship Specialty Start Date End Date Enriqueta Zhu MD [address] [place] [address] [email or web address] PCP - General Family Medicine 05/07/22 11/13/24 Enriqueta Zhu MD [address] [place] [address] 7 [place] [address] PCP - General Family Medicine 11/14/24 Merna Mills MD [address] [place] [address] Family Medicine 12/29/17 Nati Minor MD [address] [place] [address], [address] [place] [address] [email or web address] Historical LMR Provider 01/27/17 documented as of this encounter Additional Source Comments The information contained in this document represents components of the legal health record. It is not the complete legal health record.[facility]
--- OUTSIDE RECORDS SUMMARY | 2025-02-14 17:28 | XMS_ITS | Encounter Summary ---
Author Organization [facility] Address [address] [place] [address] Phone Care Team Providers Care Hardware Test Engineer Name Role Phone Merna Mills MD Unavailable [phone] Nati Minor MD Unavailable [phone] Enriqueta Zhu MD Primary Care Provider [phone] Enriqueta Zhu MD Primary Care Provider [phone] Encounter Details Date Type Department Care Team (Late st Contact Info) Description 02/23/2024 Procedure Pass [address] [place] [address] Social History Tobacco Use Types Packs/Day Years [...] high school, GED, job training, learning the French language, technical skills, or developing parenting skills)? [...] documented as of this encounter Care Teams Hardware Test Engineer Relationship Specialty Start Date End Date Enriqueta Zhu MD [address] [place] [address] PCP - General Family Medicine 05/07/22 11/13/24 Enriqueta Zhu MD [address] [place] [address] 7 [place] [address] PCP - General Family Medicine 11/14/24 Merna Mills MD [address] [place] [address] Family Medicine 12/29/17 Nati Minor MD [address] [place] [address], [address] [place] [address] [email or web address] Historical LMR Provider 01/27/17 documented as of this encounter Additional Source Comments The information contained in this document represents components of the legal health record. It is not the complete legal health record.[facility]
--- OUTSIDE RECORDS SUMMARY | 2025-02-14 17:28 | XMS_ITS | Encounter Summary ---
Author Organization [facility] Address [address] [facility] [address] [place] [address] Phone Care Team Providers Care Clinical Project Coordinator Name Role Phone Merna Mills MD Primary Care Provider + Merna Mills MD Unavailable [phone] Nati Minor MD Unavailable [phone] Enriqueta Zhu MD Primary Care Provider [phone] Enriqueta Zhu MD Primary Care Provider [phone] Encounter Details Date Type Department Care Team (Late st Contact Info) Description 06/07/2019 Ancillary Orders [facility], X-Ray - [address] [place] [address] Merna Mills MD [address] [place] [address] [email or web address] Left knee pain, unspecified chronicity Social History [...] as of this encounter Visit Diagnoses Diagnosis Left knee pain, unspecified chronicity documented in this encounter Additional Health Concerns Infection Onset Date Last Indicated Resolved Time Resp-Risk 02/14/2025 02/14/2025 documented as of this encounter Care Teams Clinical Project Coordinator Relationship Specialty Start Date End Date Merna Mills MD [address] [place] [address] PCP - General Family Medicine 12/29/17 05/06/22 Enriqueta Zhu MD [address] [place] [address] 7 [place] [address] [email or web address] PCP - General Family Medicine 05/07/22 11/13/24 Enriqueta Zhu MD [address] [place] [address] 7 [place] [address] [email or web address] PCP - General Family Medicine 11/14/24 Merna Mills MD [address] [place] [address] Family Medicine 12/29/17 Nati Minor MD [address] [place] [address], [address] [place] [address] [email or web address] Historical LMR Provider 01/27/17 documented as of this encounter Additional Source Comments The information contained in this document represents components of the legal health record. It is not the complete legal health record.[facility]
--- OUTSIDE RECORDS SUMMARY | 2025-02-14 17:28 | XMS_ITS | Encounter Summary ---
Author Organization [facility] Address [address] [place] [address] Phone Care Team Providers Care Amphibian Crewmember Name Role Phone Merna Mills MD Unavailable [phone] Nati Minor MD Unavailable [phone] Enriqueta Zhu MD Primary Care Provider [phone] Enriqueta Zhu MD Primary Care Provider [phone] Encounter Details Date Type Department Care Team (Late st Contact Info) Description 10/14/2022 Procedure Pass [facility], [address] [place] [address] Social History Tobacco Use Types Packs/Day Years [...] high school, GED, job training, learning the Polish language, technical skills, or developing parenting skills)? [...] documented as of this encounter Care Teams Amphibian Crewmember Relationship Specialty Start Date End Date Enriqueta Zhu MD [address] [place] [address] [email or web address] PCP - General Family Medicine 05/07/22 11/13/24 Enriqueta Zhu MD [address] [place] [address] 7 [place] [address] PCP - General Family Medicine 11/14/24 Merna Mills MD [address] [place] [address] Family Medicine 12/29/17 Nati Minor MD [address] [place] [address], [address] [place] [address] [email or web address] Historical LMR Provider 01/27/17 documented as of this encounter Additional Source Comments The information contained in this document represents components of the legal health record. It is not the complete legal health record.[facility]
--- OUTSIDE RECORDS SUMMARY | 2025-02-14 17:28 | XMS_ITS | Encounter Summary ---
Author Organization [facility] Address [address] [facility] [address] [place] [address] Phone Care Team Providers Care Six Sigma Project Manager Name Role Phone Merna Mills MD Primary Care Provider + Merna Mills MD Unavailable [phone] Nati Minor MD Unavailable [phone] Enriqueta Zhu MD Primary Care Provider [phone] Enriqueta Zhu MD Primary Care Provider [phone] Encounter Details Date Type Department Care Team (Late st Contact Info) Description 06/09/2019 Procedure Pass [address] [place] [address] Social History Tobacco Use Types Packs/Day Years [...] documented as of this encounter Care Teams Six Sigma Project Manager Relationship Specialty Start Date End Date Merna Mills MD [address] [place] [address] [email or web address] PCP - General Family Medicine 12/29/17 05/06/22 Enriqueta Zhu MD [address] [place] [address] 7 [place] [address] [email or web address] PCP - General Family Medicine 05/07/22 11/13/24 Enriqueta Zhu MD [address] [place] [address] 7 [place] [address] [email or web address] PCP - General Family Medicine 11/14/24 Merna Mills MD [address] [place] [address] Family Medicine 12/29/17 Nati Minor MD [address] [place] [address], [address] [place] [address] [email or web address] Historical LMR Provider 01/27/17 documented as of this encounter Additional Source Comments The information contained in this document represents components of the legal health record. It is not the complete legal health record.[facility]
--- OUTSIDE RECORDS SUMMARY | 2025-02-14 17:28 | XMS_ITS | Encounter Summary ---
Author Organization [facility] Address [address] [facility] [address] [place] [address] Phone Care Team Providers Care Division Officer Weapons Department Name Role Phone Merna Mills MD Primary Care Provider + Merna Mills MD Unavailable [phone] Nati Minor MD Unavailable [phone] Enriqueta Zhu MD Primary Care Provider [phone] Enriqueta Zhu MD Primary Care Provider [phone] Encounter Details Date Type Department Care Team (Late st Contact Info) Description 06/07/2019 Ancillary Orders Virtual Department 30 [place] [address] Merna Mills MD [address] [place] [address] [email or web address] Right knee pain, unspecified chronicity Social History Tobacco [...] XR KNEE 4 OR MORE VIEWS (BILATERAL) (06/07/2019 10:51 AM EST) Anatomical Region Laterality Modality Knee Bilateral, Knee Right, Knee Left Radiographic Imaging 06/07/2019 7:05 PM EST Impressions 06/07/2019 7:10 PM EST Right: Mild tricompartmental degenerative changes. Moderate degree of joint space narrowing of the medial compartment.. Left: Minimal degenerative changes in the patellofemoral and medial compartments. POS - [id number] Narrative 06/07/2019 7:10 PM EST EXAM: XR KNEE 4 OR MORE VIEWS (BILATERAL) COMPARISON: None FINDINGS: Right: Mild knee varus. No dislocation. No fracture or destructive bone lesion. Small tricompartmental osteophyte formation. Moderate joint space narrowing of the medial compartment. No suprapatellar joint effusion. Left: Anatomic alignment is maintained. No fracture or destructive bone lesion. Posterior patellar spurring. Tiny marginal osteophytes in the medial compartment. Joint spaces are preserved. No suprapatellar joint effusion. Procedure Note Hamlet Burch MD - 06/07/2019 EXAM: XR KNEE 4 OR MORE VIEWS (BILATERAL) COMPARISON: None FINDINGS: Right: Mild knee varus. No dislocation. No fracture or destructive bonelesion. Small tricompartmental osteophyte formation. Moderate joint spacenarrowing of the medial compartment. No suprapatellar joint effusion. Left: Anatomic alignment is maintained. No fracture or destructive bonelesion. Posterior patellar spurring. Tiny marginal osteophytes in themedial compartment. Joint spaces are preserved. No suprapatellar jointeffusion. IMPRESSION: Right: Mild tricompartmental degenerative changes. Moderate degree ofjoint space narrowing of the medial compartment.. Left: Minimal degenerative changes in the patellofemoral and medialcompartments. POS - [id number] Merna Mills MD IMG XR LOWER EXTREMITY F inal Result documented in this encounter Visit Diagnoses Diagnosis Right knee pain, unspecified chronicity Right knee pain, unspecified chronicity documented in this encounter Additional Health Concerns Infection Onset Date Last Indicated Resolved Time Resp-Risk 02/14/2025 02/14/2025 documented as of this encounter Care Teams Division Officer Weapons Department Relationship Specialty Start Date End Date Merna Mills MD [address] [place] [address] PCP - General Family Medicine 12/29/17 05/06/22 Enriqueta Zhu MD [address] [place] [address] 7 [place] [address] [email or web address] PCP - General Family Medicine 05/07/22 11/13/24 Enriqueta Zhu MD [address] [place] [address] 7 [place] [address] [email or web address] PCP - General Family Medicine 11/14/24 Merna Mills MD [address] [place] [address] Family Medicine 12/29/17 Nati Minor MD [address] [place] [address], [address] [place] [address] [email or web address] Historical LMR Provider 01/27/17 documented as of this encounter Additional Source Comments The information contained in this document represents components of the legal health record. It is not the complete legal health record.[facility]
--- OUTSIDE RECORDS SUMMARY | 2025-02-14 17:28 | XMS_ITS | Encounter Summary ---
Author Organization [facility] Address [address] [place] [address] Phone Care Team Providers Care Slider Assembler Name Role Phone Merna Mills MD Unavailable [phone] Nati Minor MD Unavailable [phone] Enriqueta Zhu MD Primary Care Provider [phone] Enriqueta Zhu MD Primary Care Provider [phone] Encounter Details Date Type Department Care Team (Late st Contact Info) Description 08/16/2024 Procedure Pass [facility] Endoscopy Admitting Dept Virtual Department [address] [place], [place] [id number] Social History Tobacco Use Types Packs/Day Years [...] with a working camera? Not on file Intimate Partner Violence Answer Date R ecorded Are you denied basic needs s uch as food, clothing, or medical care? No 08/16/2024 In the past 12 months have y ou been in a relationship with a person who hurts, threatens, or tries to control you? No 08/16/2024 Are you denied basic needs s uch as food, clothing, or medical care? No 08/16/2024 In the past 12 months have y ou been in a relationship with a person who hurts, threatens, or tries to control you? No 08/16/2024 Comments No Sex and Gender Information Value [...] documented as of this encounter Care Teams Slider Assembler Relationship Specialty Start Date End Date Enriqueta Zhu MD [address] [place] [address], [address] [place] [address] PCP - General Family Medicine 05/07/22 11/13/24 Enriqueta Zhu MD [address] [place] [address] [address] [place] [address] PCP - General Family Medicine 11/14/24 Merna Mills MD [address] [place] [address] Family Medicine 12/29/17 Nati Minor MD [address] [place] [address] [address] [place] [address] [email or web address] Historical LMR Provider 01/27/17 documented as of this encounter Additional Source Comments The information contained in this document represents components of the legal health record. It is not the complete legal health record.[facility]
--- OUTSIDE RECORDS SUMMARY | 2025-02-14 17:28 | XMS_ITS | Encounter Summary ---
Author Organization [facility] Address [address] [facility] [address] [place] [address] Phone Care Team Providers Care Personal Care Home Administrator Name Role Phone Merna Mills MD Primary Care Provider + Merna Mills MD Unavailable [phone] Nati Minor MD Unavailable [phone] Enriqueta Zhu MD Primary Care Provider [phone] Enriqueta Zhu MD Primary Care Provider [phone] Encounter Details Date Type Department Care Team (Late st Contact Info) Description 06/07/2019 Transcribe Orders Virtual Department [address] [place] [address] Merna Mills MD [address] [place] [id number] Right knee pain, unspecified chronicity (Primary Dx); Pain in right lower leg Social History Tobacco Use Types Packs/Day Years [...] as of this encounter Results * XR Tibia Fibula 2 Views (Right) (06/07/2019 10:52 AM EST) Anatomical Region Laterality Modality Leg Right Radiographic Colleen ging 06/07/2019 7:10 PM EST Impressions 06/07/2019 7:12 PM EST No destructive bone lesion. POS - [id number] Narrative 06/07/2019 7:12 PM EST EXAM: XR TIBIA FIBULA 2 VIEWS (RIGHT) COMPARISON: Radiographs of the knee obtained concurrently. FINDINGS: Knee and ankle joints are congruent. No fracture or destructive bone lesion. Small plantar calcaneal spurring. Probable os trigonum. Overlying soft tissues are grossly unremarkable. Procedure Note Hamlet Burch MD - 06/07/2019 EXAM: XR TIBIA FIBULA 2 VIEWS (RIGHT) COMPARISON: Radiographs of the knee obtained concurrently. FINDINGS: Knee and ankle joints are congruent. No fracture or destructive bonelesion. Small plantar calcaneal spurring. Probable os trigonum. Overlyingsoft tissues are grossly unremarkable. IMPRESSION: No destructive bone lesion. POS - [id number] us Merna Mills MD IMG XR LOWER EXTREMITY F inal Result documented in this encounter Visit Diagnoses Diagnosis Right knee pain, unspecified chronicity- Primary Pain in right lower leg Pain in right lower leg documented in this encounter Additional Health Concerns Infection Onset Date Last Indicated Resolved Time Resp-Risk 02/14/2025 02/14/2025 documented as of this encounter Care Teams Personal Care Home Administrator Relationship Specialty Start Date End Date Merna Mills MD [address] [place] [address] [email or web address] PCP - General Family Medicine 12/29/17 05/06/22 Enriqueta Zhu MD [address] [place] [address], [address] [place] [address] [email or web address] PCP - General Family Medicine 05/07/22 11/13/24 Enriqueta Zhu MD [address] [place] [address] [address] [place] [address] [email or web address] PCP - General Family Medicine 11/14/24 Merna Mills MD [address] [place] [address] Family Medicine 12/29/17 Nati Minor MD [address] [place] [address] [address] [place] [address] [email or web address] Historical LMR Provider 01/27/17 documented as of this encounter Additional Source Comments The information contained in this document represents components of the legal health record. It is not the complete legal health record.[facility]
--- OUTSIDE RECORDS SUMMARY | 2025-02-14 17:28 | XMS_ITS | Clinical Summary ---
Author Organization [facility] Address [address] [facility] [address] [place] [phone] Phone Care Team Providers Care Cpr Ambulance Driver Name Role Phone Merna Mills MD Unavailable [phone] Nati Minor MD Unavailable [phone] Enriqueta Zhu MD Primary Care Provider [phone] Allergies Active Allergy Reactions Criticality Noted Date Comments Dextroamphetamine-Amphetam ine 09/02/2016 Other reaction(s): head felt like cotton Pollen Extracts Itching 04/25/2021 Medications LACTOBACILLUS ACIDOPHILUS (PROBIOTIC ORAL) Act bal omega 9-wwj-[id number]-fish oil 1,000 mg (120 mg-180 mg) Cap Take 1 capsule by mouth daily. Active melatonin 1 mg Tab Take 4 mg by mouth nightly at bedtime. Active ATROVENT HFA 17 mcg/actuation inhalerIndication s:Mild intermittent asthma without complication 2 PUFF(S) BY METERED DOSE INHALER 4 TIMES A DAY 30 DAY(S) 12.9 g 11 3 Active triamcinolone acetonide 0.1 % creamIndications: Contact dermatitis due to other chemical product, unspecified contact dermatitis type apply to affected area twice a day 30 g 4 Active acyclovir (ZOVIRAX) 5 % ointment Apply topically 6 (six) times a day. 15 g 4 Active omeprazole (PRILOSEC) 20 MG capsuleIndication s:Gastroesophagea l reflux disease without esophagitis take 1 capsule by mouth every day 90 capsule 3 4 Active ondansetron (ZOFRAN) 8 MG tabletIndications :Gastroesophageal reflux disease without esophagitis take 1 tablet by mouth every 8 hours as needed for nausea 90 tablet 3 4 Active EPINEPHrine 0.3 mg/0.3 mL auto-injector Inject 0.3 mL (0.3 mg total) into the muscle as needed for anaphylaxis. 2 each 3 4 Active semaglutide, weight loss, (WEGOVY) 0.5 mg/0.5 mL subcutaneous injection Inject 0.5 mL (0.5 mg total) under the skin every 7 days. 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 Active diclofenac sodium (VOLTAREN) 75 MG EC tablet Take 75 mg by mouth 2 (two) times a day. 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 90 tablet 3 5 Active azelastine (ASTELIN) 137 mcg (0.1 %) nasal sprayIndications: Postnasal drip 1 spray by Nasal route 2 (two) times a day. Use in each nostril as directed 30 mL 11 5 Active ofloxacin (OCUFLOX) 0.3 % ophthalmic solutionIndicatio ns:Otalgia of both ears Place 1 drop into each eye 4 (four) times a day. 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 TAKING 2 TIMES A DAY 540 tablet 3 5 Active Active Problems Problem Noted Date Diagnosed Date Chronic cough 11/23/2024 Assessment & Plan (11/23/2024 4:52 PM EDT): Mary presents with a cough for the past 6 months. She has she caught this from her mom's care home. I ordered a chest x-ray today to further evaluate this. She notes that she had a telemed visit and was prescribed Augmentin-this did not help her cough. I wrote for prednisone-to be taken as directed and side effects discussed. I advised her to follow-up with her PCP in 3 weeks-earlier if needed. She understands and agrees. Sinus congestion 11/23/2024 Assessment & Plan (11/23/2024 4:52 PM EDT): Mary presents for ongoing right maxillary sinus congestion. I ordered an x-ray of her sinuses today to further investigate this. I also sent a prescription for prednisone to see if this will help decrease inflammation and help with the pain. I informed her to call if there are any other issues or concerns. Follow-up with PCP in 3 weeks-earlier if needed. She understands and agrees. Acute upper respiratory infection 10/27/2024 Assessment & Plan (10/27/2024 2:32 PM EDT): Acute URI with sinus congestion and cough for 2 weeks and not improving. She does not feel she needs an in person evaluation at this time. Willing to start rx for Augmentin BID x 10 days if symptoms persist/worsen, I recommend an in person exam and consider CXR given hx of pneumonia. Recommend supportive treatment with rest and hydration. If any severe symptoms, advise ER evaluation. She may have a slight asthma exacerbation and offered oral prednisone but she wants to hold off on prednisone at this time. Has rescue inhalers at home (she states she is not sure which brand). Orders: amoxicillin-clavulanate (AUGMENTIN) 875-125 mg per tablet; Take 1 tablet (875 mg of amoxicillin total) by mouth 2 (two) times a day for 10 days. Postnasal drip 10/27/2024 Assessment & Plan (10/27/2024 2:32 PM EDT): Orders: azelastine (ASTELIN) 137 mcg (0.1 %) nasal spray; 1 spray by Nasal route 2 (two) times a day. Use in each nostril as directed Otalgia of both ears 10/27/2024 Assessment & Plan (10/27/2024 2:32 PM EDT): States she gets this refilled from her PCP when she has a flare up of otalgia in her ears. Limitations with VV and inability to evaluate ear. Rx sent per request. Advised patient to contact the office if symptoms do not improve, or become worse. Encouraged patient to contact the office if there are any questions or concerns. Orders: ofloxacin (OCUFLOX) 0.3 % ophthalmic solution; Place 1 drop into each eye 4 (four) times a day. Right knee buckling 05/25/2024 Assessment & Plan (05/25/2024 6:14 PM EST): See above Cognitive impairment 05/25/2024 Assessment & Plan (05/25/2024 6:14 PM EST): Had baseline neuropsych Would like repeat -- to Dr Loaiza Orders: External Referral to Neuropsychology (Dr. Farhana Loaiza) Ríos's esophagus without dysplasia 05/25/2024 Assessment & Plan (05/25/2024 6:14 PM EST): Ref placed to GI Orders: Ambulatory referral to External Gastroenterology Overweight 02/09/2024 Overview (02/09/2024): History of obesity, max weight 225 Currently WHO class 0, AACE stage I AOM's: Compounded semaglutide Assessment & Plan (02/09/2024 3:55 PM EDT): Pt was educated on the pathophysiology of obesity, which is a chronic, relapsing, often progressive neuroendocrine disease with behavioral components. We discussed treatment approaches including lifestyle changes, pharmacotherapy & bariatric surgery. We discussed their personal treatment goals. We discussed targeting a weight loss goal of 5-10% over the next 6 months as this modest amount of weight loss has been shown to decrease blood pressure, insulin resistance, sleep apnea, liver inflammation, arthritic pain and improve dyslipidemia. I recommend the following labs as part of their initial evaluation, the results of which will direct further treatment recommendations:TSH, zinc, b12, Vit D Patient was given the initial meal plan and exercise recommendations. I recommend patient work with our dietitian, Evita Rios RD and have asked them to schedule an appt. She has been on a compounded semaglutide and she has tolerated this relatively well. She is having some GI side effects. We reviewed possible risks associated with compounded GLP-1 RA's. She feels her weight loss is plateauing on her current regimen. She says she regained a little bit of weight. I would recommend switching to Zepbound. We discussed issues with insurance coverage but we can try for prior Auth. I would switch her to 7.5 mg as an estimate of a comparable dose, she understands that this is not at all exact since the compounded products can vary quite a bit compared to the brand. The patient has completed > 6 months of efforts focused on dietary and lifestyle changes and has been unsuccessful in reaching their weight loss goals. I have explained that this medication decreases appetite & food cravings and increases feeling of fullness. I have reviewed the following possible side effects: Nausea, vomiting, constipation, gastroparesis, SBO, pancreatitis, gallstones, suicidal thoughts, diabetic retinopathy, optic neuropathy, low blood sugar and in rat studies an increased risk of medullary thyroid cancer and MEN2. This medication is not recommended in and in patients with a personal or family history of medullary thyroid cancer or multiple endocrine neoplasia 2A or 2B. We also discussed health insurance inflicted barriers to obtaining GLP1RA and possible need for prior authorization & appeal Restless leg syndrome 04/13/2023 Hypothyroidism 04/13/2023 Vane's thyroiditis 04/13/2023 Mood swings 03/25/2023 Cervical radiculopathy 01/15/2023 Numbness in both hands 10/14/2022 Assessment & Plan (10/14/2022 1:06 PM EDT): She has had this before c/w cervical radiculopathy. MS is also on the differential. MRI scheduled for 10/19/22, I am adding MRI brain to her orders given concerns for MS. Fibromyalgia 10/14/2022 Assessment & Plan (10/16/2022 2:39 PM EDT): Did not tolerate duloxetine due to weight gain, but it had a strongly positive effect on pain. We discussed lyrica vs low dose naltrexone. She opts to try low dose naltrexone given her concerns for weight gain on lyrica. I have faxed low dose naltrexone Rx to [facility]. 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 Advised stop cromolyn. Recommend follow up with [facility] (Aruna Greco) and tell her that she must remain on omeprazole given her hx of Ríos's esophagus. She should take a daily non drowsy antihistamine WITHOUT pseudephedrine (so claritin and not claritin D). Assessment & Plan (07/27/2022 9:50 PM EDT): Scored considerably on mast cell survey and I agree w/ her that MCAS is likely underlying issue for her gastro concerns and some inflammatory concerns. Cromolyn at a low dose is helping somewhat. Recommend she continue and ideally would be taking twice per day. Assessment & Plan (06/24/2022 7:27 PM EDT): As noted elsewhere, low histamine diet. Recommend also re-starting cromolyn. She can take 100mg every morning before her meal, or take up to 200mg prior to every meal (3x/day) and even before bed, depending on her symptoms. Gastroesophageal reflux disease without esophagi tis 06/24/2022 Assessment & Plan (02/24/2024 7:56 AM EST): Adopt reflux friendly diet and/or incr omeprazole to 40mg daily Assessment & Plan (10/14/2022 1:07 PM EDT): Omeprazole is necessary via GI (Tassoni) Assessment & Plan (06/24/2022 7:27 PM EDT): Advised taking famotidine as needed for reflux, can take omeprazole daily for bursts of 2 weeks or more for severe dyspepsia. 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 She is prone to injury with EDS. I referred her to PT Assessment & Plan (10/16/2022 2:38 PM EDT): Ongoing, stable, though causes significant debilitation. Assessment & Plan (07/27/2022 9:51 PM EDT): W/ some pain from moving tendons. I think swimming will work beautifully for improving tendon strength and ideally she could work with an EDS trained physical therapist in the near future. Assessment & Plan (06/24/2022 7:29 PM EDT): Recommended pt do her home exercises for EDS joint stability. PT is challenging to do weekly w/ a full schedule. Attention deficit hyperactiv ity disorder (ADHD), predominantly inattentive type 06/24/2022 Assessment & Plan (10/16/2022 2:38 PM EDT): Refilled adderall, which is stable. Assessment & Plan (06/24/2022 7:30 PM EDT): She has had a positive response to some stimulant activity in the past. I think it is worthwhile to try very low dose IR adderall (2.5mg twice daily) and may take up to 5mg twice daily. Essential hypertension 05/07/2022 Chronic pain of right ankle 06/10/2021 Primary osteoarthritis of right knee 04/25/2021 Assessment & Plan (05/25/2024 6:14 PM EST): W/ right knee buckling, pain. Recent ortho eval in [place] not helpful; just wanted to do surgery. She'd like an injection to help w pain. To [facility] -- ref placed. I've found some EDS PT providers online and have sent her one of the best seeming ones. Assessment & Plan (02/23/2024 3:49 PM EST): Orders: Ambulatory referral [place] [facility] Post-traumatic osteoarthritis of right ankle Spinal stenosis 08/29/2019 Arthralgia of multiple joints 07/31/2019 Assessment & Plan (06/24/2022 7:28 PM EDT): We discussed her knee pain and the difficulty of the weight loss paradigm. Advised I think there are a few reasons why she might have knee pain, and perhaps amending her diet to adopt a low histamine lifestyle might reduce all of her joint inflammation, including her knee pain. Then she could be more mobile and exercise more freely. Assessment & Plan (07/31/2019 8:48 PM EDT): Keep a diary of location, severity, length of involvement and her strategy to address it. Should her symptoms progress I am requesting call for office evaluation at that time. 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 Assessment & Plan (07/31/2019 8:42 PM EDT): Continue thyroid replacement therapy exactly as prescribed. Mild intermittent asthma without complication Assessment & Plan (07/31/2019 8:42 PM EDT): Avoid known triggers. Continue inhalers as prescribed and follow closely with prescribing physician. Osteoarthritis of multiple joints 07/31/2019 Assessment & Plan (10/14/2022 1:03 PM EDT): Knees are primary concern, given they hurt and are popping out of joint. She sees [facility] but her provider is on maternity leave. They are an ongoing challenge for her. Assessment & Plan (07/31/2019 8:45 PM EDT): Joint protection, energy conservation. Gentle, regular exercise routine. Avoid falls, injuries, overuse. Keep body weight in ideal range for his height. She may benefit from topical cream such as Arnica, Biofreeze, Aspercreme versus medicated patches such as salonpas, icy hot patch 2-3 times daily and if necessary at bedtime x 3 weeks. Since she is not too keen on total knee replacement at this time consider Visco supplementation into her right knee-pamphlet sent via mail to review and consider if interested. I briefly have explained to her that it is not a substitute for total knee replacement but may reduce severity of her pain for 6-12 months after 3 weekly injections. Dry eyes 07/31/2019 Assessment & Plan (10/27/2024 2:32 PM EDT): Patient requesting refill for ofloxacin for her eyes since it has been helping. She is aware systemic antibiotics likely would resolve this without topical ofloxacin, but patient states she prefers this rx as well. Advised patient to contact the office if symptoms do not improve, or become worse. Encouraged patient to contact the office if there are any questions or concerns. Orders: ofloxacin (OCUFLOX) 0.3 % ophthalmic solution; 3 DROPS IN EAR DIRECTED Assessment & Plan (07/31/2019 8:46 PM EDT): Keep well-hydrated. Continue eyedrops twice daily as needed. Contact press tender short goods if worse or not better for consideration of different product. In case her symptoms worsen or progress consideration for sicca syndrome in the course of Sjogren's syndrome and testing for SSA, SSB antibodies. Anxiety 07/31/2019 Assessment & Plan (07/31/2019 8:47 PM EDT): Regular relaxation/meditation sessions in addition to positive imagery. Keep regular engagement in hobbies and favorite activities. If unable to manage consider formal personal psychotherapy. Multiple food allergies 07/31/2019 Assessment & Plan (05/25/2024 6:14 PM EST): Re ref to Dr Dary Marion Gave # to call Orders: Ambulatory referral to External Gastroenterology Assessment & Plan (07/27/2022 9:52 PM EDT): Mast cell tx w/ low histamine diet and cromolyn as noted above. Assessment & Plan (06/24/2022 7:26 PM EDT): Low histamine diet recommended. I think, despite her negative testing, that she likely has a mast cell disorder (which can be hard to prove on testing). I recommend checking out [employer] for more information regarding low histamine and antihistamine diet. Assessment & Plan (07/31/2019 8:49 PM EDT): Avoid known allergens as much as possible. If symptoms progressive despite diligent dietary modification consider desensitization. Chronic pain of right knee 01/18/2019 Assessment & Plan (05/25/2024 6:14 PM EST): See above to ortho Orders: Ambulatory referral to External Orthopedics Resolved Problems Problem Noted Date Diagnosed Date Resolved Date Postnasal drip 06/24/2022 10/14/2022 Assessment & Plan (06/24/2022 7:25 PM EDT): Recommend stop ipratropium nasal spray, particularly as it has not helped her. Recommend switch to intranasal fluticasone + azelastine, 1 spray of each in each nostril twice per day. I also suspect a low histamine diet will help her allergy symptoms. Chronic pain syndrome 05/07/20222022 Assessment & Plan (07/27/2022 9:52 PM EDT): Given intense pain at night, recommend try nightly cyclobenzaprine 10mg to help w/ sleep, pain relief. Discussed mix of duloxetine and cyclobenzaprine, this is safe to take together, very low risk of serotonin syndrome. I am happy to take over her duloxetine rx. Chronic fatigue syndrome 12/07/201812/2023 Sjogren's syndrome 12/07/2018 3 Encounters Date Type Department Care Team Description 02/14/2025 8:26 AM EST Hospital Encounter [address] [place] [address] Kristal Fernando, OFFICE REP Arrived 02/11/[address] [address] Selene Dutta, AUGUSTIN Medication Refill 02/11/[address] [address] Archie Navas, DO Medication Refill 12/02/[address] [address] Sammy Izaguirre PA-C, TUCKER Medication Refill 11/26/[address] [address] Selene Dutta, MSN Medication Refill 11/26/[address] [address] Archie Navas, 11/24/2024 10:43 AM EDT - 11/24/2024 11:59 PM EDT Hospital Encounter [address] [place] [address] Archie Navas, DO Discharge Disposition: Home or Self Care 11/24/2024 10:43 AM EDT - 11/24/2024 11:59 PM EDT Hospital Encounter [address] [place] [address] Archie Navas, DO Discharge Disposition: Home or Self Care 11/24/[address] [address] Enriqueta Zhu MD Request For Order(s) (X ray orders) 11/23/2024 4:45 PM EDT Office Visit [facility] [address] [place] [address] Archie Navas, Chronic cough (Primary Dx); Sinus congestion 11/17/2024 Telephone [facility] [address] [place] [address] Enriqueta Zhu MD Appointment (Pt is running late for her 3:20 appt I advised pt of the 10 min late policy,pt refused to accept it.pt said she is still going to show up. I offerred to reschedule and pt said she is at the office and they can make her an appt./) 11/14/2024 6:40 PM EDT Office Visit [facility] at [address] [place] [address] Soledad Paige, CAROLINA Acute cough (Primary Dx); Generalized body aches; Nasal congestion; Acute upper respiratory infection; Sore throat from Last 3 Months Immunizations Immunization Administration Dates Next Due COVID-19 (Pre-02/01) Moderna Vaccine, Bivalent 6 mo+ 01/21/2022 COVID-19 (Pre-02/01) Moderna Vaccine, mRNA, PF 1 DT 12/15/2007 Influenza Quadrivalent Preservative Free IM 12/11 Influenza Recombinant Quadrivalent Preservative Free IM 02/13/2021 Tdap 07/10/2018 Zoster recombinant 10/04/2023 Family History Medical History Relation Comments No Known Problems Brother Colon cancer Father Relation Status Comments Brother Alive Father 68 of CJD Mother Alive Social History Tobacco Use Types Packs/Day Years Used Date Smoking Tobacco: Former Cigarettes Q uit: 01/25/1989 Smokeless Tobacco: Never Tobacco Cessation:Counseling Given: Not Answered Alcohol Use Standard Drinks/Week Comments Yes 2 [...] your housing situation today? I have kimberly sing 08/28/2024 How many times have you move [...] 08/28/2024 Are you denied basic needs s uch [...] on file Sexual Orientation Not on file Last Filed Vital Signs Vital Sign Reading Time Taken Comments Blood Pressure 126/74 11/23/2024 4:34 PM EDT Pulse 82 11/23/2024 4:34 PM EDT Temperature 37.1 C (98.7 F) 11/23/2024 4:34 PM EDT Respiratory Rate 16 11/14/2024 7:23 PM EDT Oxygen Saturation 97% 11/23/2024 4:34 PM EDT Inhaled Oxygen Concentration - - Weight 93 kg (205 lb) 11/14/2024 7:23 PM EDT Height 175.3 cm (5' 9 ) 11/14/2024 7:23 PM EDT Body Mass Index 30.27 11/14/2024 7:23 PM EDT Plan of Treatment Health Maintenance Due Date Last Done Comments HEPATITIS C SCREENING 08/12/1985 PNEUMOCOCCAL VACCINES (50+ years) (1 of 2 - PCV) 08/12/1986 COLOGUARD 08/12/2012 FIT TEST 08/12/2012 FOBT 08/12/2012 SIGMOIDOSCOPY 08/12/2012 VIRTUAL COLONOSCOPY 08/12/2012 RSV VACCINE (1 - Risk 50-74 years 1-dose series) 08/12/2017 MAMMOGRAM 08/05/2023 08/04/2021, 04/14, 01/18/2018 ZOSTER VACCINES (2 of 2) 11/29/2023 10/04/2023 INFLUENZA VACCINE (#1) 2024 02/13/2021, 2019 COVID-19 VACCINE ( season) 2024 01/21/2022, 01/21/2022, 02/18/2021, Additional history exists TSH LEVEL 03/13/2025 03/13/2024, 11/10, 04/26/2023, Additional history exists BLOOD PRESSURE 05/26/2025 11/23/2024 POTASSIUM LEVEL 08/28/2025 02/14/2025, 08/10, 04/26/2024, Additional history exists DEPRESSION SCREENING 10/26/2025 10/26/2024 SMOKING Hx and SMOKELESS TOBACCO SCREENING 11/23/2025 11/23/2024 PAP SMEAR 11/22/2026 11/23/2023 SCREENING FOR DIABETES 08/29/2027 08/28/2024, 2023 Adult Td,Tdap Booster 07/10/2028 07/10/2018 LIPID PANEL 11/22/2028 11/23/2023, 04/12, 01/14/2023 COLONOSCOPY 08/16/2034 08/16/2024 COLORECTAL CANCER SCREENING 08/16/2034 HIV ONE-TIME SCREENING (18-65 YEARS) Completed 05/26/2022 HEPATITIS A VACCINES Aged Out 06/07/2024 No long er eligible based on patient's age to complete this topic HIB VACCINES Aged Out No longer eligi ble based on patient's age to complete this topic MENINGOCOCCAL VACCINES (ACWY) Aged Out No longer eligible based on patient's age to complete this topic MENINGOCOCCAL VACCINES (B) Aged Out N o longer eligible based on patient's age to complete this topic Medical Devices Implanted Type [employer] Instructor Device Identifier Shelf Expiration Date Model / Serial / Lot Cervical Procedures Procedure Name Priority Date/Time Associated Diagnosis Comments XR CERVICAL SPINE 4-5 VIEWS Routine 02/14/2025 8:50 AM EST Cervical radiculopathy CBC AND DIFFERENTIAL Routine 02/14/2025 8:22 AM EST Abdominal pain, generalized Diarrhea, unspecified type Gastric tympany IMMUNOGLOBULINS IGG, IGA, IGM Routine 02/14/2025 8:22 AM EST Abdominal pain, generalized Diarrhea, unspecified type Gastric tympany COMPREHENSIVE METABOLIC PANEL (CMP) Routine 02/14/2025 8:22 AM EST Abdominal pain, generalized Diarrhea, unspecified type Gastric tympany CBC AND DIFFERENTIAL Routine 02/14/2025 8:22 AM EST Abdominal pain, generalized Diarrhea, unspecified type Gastric tympany XR CHEST PA AND LATERAL 2 VIEWS Routine 11/24/2024 11:20 AM EDT Chronic cough XR PARANASAL SINUSES 3 OR MORE VIEWS Routine 11/24/2024 11:19 AM EDT Sinus congestion POCT RAPID STREP A Routine 11/14/2024 6: 45 PM EDT POCT COVID-19 RT-PCR/INFLUENZA A & B/RSV CEPHEID Routine 11/14/2024 6:44 PM EDT ENDOSCOPY, COLON 08/16/2024 7:03 AM EDT THYROID STIMULATING HORMONE (TSH) Routine 03/13/2024 8:25 AM EST 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 LIPID PANEL Routine 11/23/2023 12:11 PM EDT Essential hypertension PAP TEST Routine 11/23/2023 12:00 AM EDT BI MAMMOGRAM SCREENING WITH TOMOSYNTHESIS WITH CAD (BILATERAL) Routine 08/04/2021 9:32 AM EDT Breast screening from Last 3 Months or Most Recently Relevant to Health Maintenance Results * XR CERVICAL SPINE 4-5 VIEWS [...] clinician's provided indication for this examination in [facility]: Pain; has hardware in neck with cervical radiculopathy COMPARISON: None Procedure Note Richard Salazar MD - 02/14/2025 XR CERVICAL SPINE 4-5 VIEWS Referring clinician's provided indication for this examination in [facility]:Pain; has hardware in neck with cervical radiculopathy COMPARISON: None IMPRESSION: S/P multilevel ACDF from C2-C5. Hardware components are withoutsignificant interval change compared to radiographic appearance on thestudy of 10/19/2022, with some disruption of the hardware components atC4-5 and C5-6. Mild chronic sclerosis of the C4 and C5 vertebra and minorlucency adjacent to some of the hardware components particularly at the O2srphy, to a lesser degree at the C6 and C4 levels, without significantchange from prior study. Stable endplate changes and moderate diffusefacet arthropathy. Minimal anterolisthesis at C2-3 and mild retrolisthesisat C5-6 as seen on the neutral and flexion views, which appears topartially normalize on the extension view. Kristal Fernando [facility] IM XR SPINE Fin al Result * Immunoglobulins IgG, IgA, IgM (02/14/2025 8:22 AM EST) Immunoglobulin G 1,049 700 - 1,600 mg/dL 02/14/2025 5:18 PM EST [facility] Immunoglobulin A 103 70 - 400 mg/dL 02/14/2025 5:18 PM EST [facility] Immunoglobulin M 106 40 - 230 mg/dL 02/14/2025 5:18 PM EST [facility] Blood (Blood) Venipuncture / Unknown 02/14/2025 8:22 AM EST 02/14/2025 8:22 AM EST us Jose Francisco Ribeiro DO LAB BLOOD BKR ORDERABLES Fin al Result [facility] [address] [place] [address] * Comprehensive Metabolic Panel (CMP) (02/14/2025 8:22 AM EST) Sodium 140 136 - 145 mmol/L 02/14/2025 5:18 PM [facility] Potassium 4.3 3.4 - 5.1 mmol/L 02/14/2025 5:18 PM [facility] Chloride 104 98 - 107 mmol/L 02/14/2025 5:18 PM [facility] CO2 22 20 - 31 mmol/L 02/14/2025 5:18 PM [facility] Anion Gap 14 3 - 17 mmol/L 02/14/2025 5:18 PM [facility] BUN 20 6 - 23 mg/dL 02/14/2025 5:18 PM [facility] Creatinine 0.60 0.50 - 1.00 mg/dL 02/14/2025 5:18 PM [facility] eGFR 105 >59 mL/min/1.7 3m2 02/14/2025 5:18 PM [facility] Comment:Estimated glomerular filtration rate calculated using the CKD-EPI refit equation. Glucose 75 70 - 99 mg/dL 02/14/2025 5:18 PM [facility] Calcium 9.3 8.5 - 10.5 mg/dL 02/14/2025 5:18 PM [facility] AST 28 <33 U/L 02/14/2025 5:18 PM [facility] ALT 24 <34 U/L 02/14/2025 5:18 PM [facility] Alkaline Phosphatase 91 40 - 130 U/L 02/14/2025 5:18 PM [facility] Bilirubin, Total 0.3 0.0 - 1.2 mg/dL 02/14/2025 5:18 PM [facility] Total Protein 7.6 6.4 - 8.3 g/dL 02/14/2025 5:18 PM [facility] Albumin 4.8 3.5 - 5.2 g/dL 02/14/2025 5:18 PM [facility] Globulin 2.8 1.9 - 4.1 g/dL 02/14/2025 5:18 PM [facility] Blood (Blood) Venipuncture / Unknown 02/14/2025 8:22 AM EST 02/14/2025 8:22 AM EST us Jose Francisco Ribeiro LAB BLOOD BKR ORDERABLES Fin al Result [address] [address] * (ABNORMAL) CBC and Differential (02/14/2025 8:22 AM EST) WBC 6.38 4.00 - 11.00 K/uL 02/14/2025 1:13 PM [facility] RBC 3.98(L) 4.00 - 5.20 M/uL 02/14/2025 1:13 PM [facility] Hemoglobin 13.1 12.0 - 16.0 g/dL 02/14/2025 1:13 PM [facility] Hematocrit 40.4 36.0 - 46.0 % 02/14/2025 1:13 PM [facility] MCV 101.5(H) 80.0 - 100.0 fL 02/14/2025 1:13 PM [facility] MCH 32.9(H) 27.0 - 31.0 pg 02/14/2025 1:13 PM [facility] MCHC 32.4 32.0 - 36.0 g/dL 02/14/2025 1:13 PM [facility] MPV 9.7 8.4 - 12.0 fL 02/14/2025 1:13 PM [facility] RDW-CV 13.5 11.5 - 14.5 % 02/14/2025 1:13 PM [facility] PLT 294 150 - 450 K/uL 02/14/2025 1:13 PM [facility] Neutrophils 64.0 % 02/14/2025 1:13 PM [facility] Lymphocytes 19.0 % 02/14/2025 1:13 PM [facility] Monocytes 10.2 % 02/14/2025 1:13 PM [facility] Eosinophils 5.6 % 02/14/2025 1:13 PM [facility] Basophils 0.9 % 02/14/2025 1:13 PM [facility] Imm Grans 0.3 % 02/14/2025 1:13 PM [facility] NRBC 0.0 <=0.0 /100 WBCs 02/14/2025 1:13 PM [facility] Absolute Neutrophils 4.08 1.92 - 7.60 K/uL 02/14/2025 1:13 PM [facility] Absolute Lymphocytes 1.21 0.72 - 4.10 K/uL 02/14/2025 1:13 PM [facility] Absolute Monocytes 0.65 0.16 - 1.10 K/uL 02/14/2025 1:13 PM [facility] Absolute Eosinophils 0.36 0.00 - 0.50 K/uL 02/14/2025 1:13 PM [facility] Absolute Basophils 0.06 0.00 - 0.15 K/uL 02/14/2025 1:13 PM [facility] Absolute Imm Grans 0.02 0.00 - 0.09 K/uL 02/14/2025 1:13 PM [facility] Absolute NRBC 0.00 <=0.00 K cells/uL 02/14/2025 1:13 PM [facility] Absolute Neutrophils 4.08 1.92 - 7.60 K/uL 02/14/2025 1:13 PM [facility] Comment:Automated cell count . Manual ANC may differ if performed. Diff Type Auto 02/14/2025 1:13 PM [facility] Blood (Blood) Venipuncture / Unknown 02/14/2025 8:22 AM EST 02/14/2025 8:22 AM EST us Jose Francisco Ribeiro DO LAB BLOOD BKR ORDERABLES Fin al Result [facility] [address] [place] [address] * XR CHEST PA AND LATERAL 2 VIEWS (11/24/2024 11:20 AM EDT) Anatomical Region Laterality Modality Chest Computed Radiogr aphy 11/24/2024 1:15 PM EDT Impressions 11/24/2024 1:21 PM EDT No acute pulmonary process demonstrated radiographically Narrative 11/24/2024 1:21 PM EDT XR CHEST PA AND LATERAL 2 VIEWS Referring clinician's provided indication for this examination in [facility]: Cough COMPARISON: CT ANGIO CHEST WITH AND WITHOUT CONTRAST ; CT ABDOMEN/PELVIS WITH CONTRAST FINDINGS: Devices/Tubes/Lines: None. Lungs: The lungs are well-inflated. No focal consolidation or pulmonary edema. Pleura: No pleural effusion or pneumothorax. Heart/Mediastinum: The radiographic appearance of the cardiac silhouette is within normal limits. There is a rounded density at the right cardiophrenic angle in keeping with a prominent epicardial fat pad as demonstrated on prior CT abdomen and pelvis. Bones/Soft Tissues: Multilevel degenerative changes of the spine. Procedure Note Asia Jenkins MD - 11/24/2024 XR CHEST PA AND LATERAL 2 VIEWS Referring clinician's provided indication for this examination in [facility]:Cough COMPARISON: CT ANGIO CHEST WITH AND WITHOUT CONTRAST ; CTABDOMEN/PELVIS WITH CONTRAST FINDINGS: Devices/Tubes/Lines: None. Lungs: The lungs are well-inflated. No focal consolidation or pulmonaryedema. Pleura: No pleural effusion or pneumothorax. Heart/Mediastinum: The radiographic appearance of the cardiac silhouetteis within normal limits. There is a rounded density at the rightcardiophrenic angle in keeping with a prominent epicardial fat pad asdemonstrated on prior CT abdomen and pelvis. Bones/Soft Tissues: Multilevel degenerative changes of the spine. IMPRESSION: No acute pulmonary process demonstrated radiographically us Archie Navas DO IMG XR CHEST Final Result * XR PARANASAL SINUSES 3 OR MORE VIEWS (11/24/2024 11:19 AM EDT) Anatomical Region Laterality Modality Face Computed Radiogr aphy 11/25/2024 12:3 1 AM EDT Impressions 11/25/2024 12:32 AM EDT Patchy opacification of the right maxillary sinus, may reflect sinusitis. Narrative 11/25/2024 12:32 AM EDT XR PARANASAL SINUSES 3 OR MORE VIEWS Referring clinician's provided indication for this examination in Epic: Pain COMPARISON: None FINDINGS: There is patchy opacification of the right maxillary sinus best seen on the Banerjee view. Frontal sinuses appear and plastic. The ethmoid air cells and sphenoid sinus are well-aerated and clear. The mastoid air cells are not well seen. Procedure Note Cassy Fonseca MD - 11/25/2024 XR PARANASAL SINUSES 3 OR MORE VIEWS Referring clinician's provided indication for this examination in Epic:Pain COMPARISON: None FINDINGS: There is patchy opacification of the right maxillary sinus best seen onthe Banerjee view. Frontal sinuses appear and plastic. The ethmoid aircells and sphenoid sinus are well-aerated and clear. The mastoid air cellsare not well seen. IMPRESSION: Patchy opacification of the right maxillary sinus, may reflectsinusitis. us Archie Navas DO IMG XR HEAD AND SHUNT SERIES Fin al Result * POCT Rapid Strep A (11/14/2024 6:45 PM EDT) [facility] Signature Strep A, PCR Not Detected Not Detected [facility] 11/14/2024 6:45 PM EDT 11/14/2024 7:10 PM EDT us Soledad Paige OFFICE REP LAB POCT ENTER/E DIT ORDERABLES Final Result [facility] [address] [address], [facility] [phone] * POCT COVID-19 RT-PCR/Influenza A & B/RSV (Cepheid) (11/14/2024 6:44 PM EDT) RSV PCR Negative Negative [facility] SARS-CoV-2 (COVID-19) Negative Negative [facility] POC Influenza A PCR Negative Negative [facility] Influenza B PCR Negative Negative [facility] 11/14/2024 6:44 PM EDT 11/14/2024 7:22 PM EDT Soledad Paige OFFICE REP LAB POCT ENTER/E DIT ORDERABLES Final Result [facility] [place] [address], [facility] [phone] * ENDOSCOPY, COLON (08/16/2024 7:03 AM EDT) Narrative Transcriptions Nino Fofana MD - 08/16/2024 7:03 AM EDT [facility] Patient Name: Mary Huston Attending MD:: NINO FOFANA MD, Procedure Date: 08/16/2024 7:03 AM Date of : 1965 Age: 59 Admit Type: Outpatient Gender: Female Room: [facility] 04 Referring MD: Enriqueta Leong Exam Type: Colonoscopy Indications: High risk colon cancer surveillance: Personalhistory of colonic polyps, Family history of colon cancer Medications: Monitored Anesthesia Care Procedure: Informed consent was obtained from the patientafter discussion of the indications, limitations, alternatives, benefits, and risks of the procedure. Risks specifically discussed include but are not limited to medication reactions, missed lesions, bleeding, perforation, or the need for emergent surgery. Throughout the procedure, the patient's blood pressure, pulse, end-tidal CO2, and oxygensaturations were monitored continuously. The Olympus adult variable colonoscope [id number] #4 was introduced through the anus and advanced to the ileocecal valve. The colonoscopy was performedwithout difficulty. The patient tolerated the procedurewell. The quality of the bowel preparation was good. Anatomical landmarks were photographed. Complications: No immediate complications. Estimated blood loss:None. Findings: The perianal and digital rectal examinations were normal. Multiple small-mouthed diverticula were found inthe sigmoid colon and descending colon. The rectum, recto-sigmoid colon, sigmoid colon, descending colon, splenic flexure, transversecolon, hepatic flexure, ascending colon, cecum,appendiceal orifice, rectum (on retroflexion) and ascendingcolon (on retroflexion) appeared normal. Impression: - Diverticulosis in the sigmoid colon and in the descending colon. - The rectum (on retroflexion), ascending colon (on retroflexion), rectum, sigmoid colon, descending colon, splenic flexure, transverse colon, hepatic flexure, ascending colon, cecum, recto-sigmoidcolon and appendiceal orifice are normal. - No specimens collected. Recommendation: - Discharge patient to home. - High fiber diet. - Continue present medications. - Repeat colonoscopy in 5 years for surveillance. - You have diverticulosis so please eat a high fiber diet. NINO FOFANA MD 08/16/2024 7:51:13 AM This report has been signed electronically. Number of Addenda: 0 Note Initiated On: 08/16/2024 7:03 AM Procedure Code(s): --- Professional --- 10488, Colonoscopy, flexible; diagnostic, including collection of specimen(s) by brushing or washing, when performed (separateprocedure) --- Technical --- 98802, Colonoscopy, flexible; diagnostic, including collection of specimen(s) by brushing or washing, when performed (separateprocedure) Diagnosis Code(s): --- Professional --- Z86.010, Personal history of colonic polyps Z80.0, Family history of malignant neoplasm of digestive organs K57.30, Diverticulosis of large intestine without perforation or abscess without bleeding --- Technical --- Z86.010, Personal history of colonic polyps Z80.0, Family history of malignant neoplasm of digestive organs K57.30, Diverticulosis of large intestine without perforation or abscess without bleeding CPT copyright 2021 [employer]. All rights reserved. The codes documented in this report are preliminary and upon chemist steroids reviewmay be revised to meet current compliance requirements. Procedure Date: 08/16/2024 7:03:[address] [place] [id number] Enriqueta Zhu MD GI PROCEDURE ORDERABLES F inal Result * TSH (03/13/2024 8:25 AM EST) TSH 0.66 0.27 - 4.20 uIU/mL [facility] Blood 03/13/2024 8:25 AM EST 03/13/2024 8:30 AM EST Lydia Bey OFFICE REP LAB BLOOD BKR ORDERABLES F inal Result [address] [address] * (ABNORMAL) Lipid panel (11/23/2023 12:11 PM EDT) HDL 68 mg/dL [facility] Comment: Interpretation <40 mg/dL: Low HDL cholesterol (major risk factor for CHD) Greater than or equal to 60 mg/dL: High HDL cholesterol ( negative risk factor for CHD) HDL - cholesterol is affected by a number of factors, e.g. smoking, excerise, hormones, sex and age. CHOLESTEROL 209 0 - 240 mg/dL [facility] TRIGLYCERIDES 103 30 - 160 mg/dL [facility] LDL 120 50 - 129 mg/dL [facility] Comment: LDL levels in terms of risk for coronary heart disease: <100 mg/dL: Optimal 100-129 mg/dL: Near or above optimal 130-159 mg/dL: Borderline high 160-189 mg/dL: High >190 mg/dL: Very High CARDIAC RISK RATIO 3.1(L) 3.3 - 4.4 C [facility] Blood 11/23/2023 12:1 1 PM EDT 11/23/2023 12:15 PM EDT us Enriqueta Zhu MD LAB BLOOD BKR ORDERABLES Final Result [address] [address] * Pap Test (11/23/2023 12:00 AM EDT) Report [address] [address] Paper Machine Operator: Lisa Reaves MD ELECTRICIAN'S ASSISTANT Cytology Report FINAL DIAGNOSIS A. PAP SMEAR (THIN PREP) CE: SPECIMEN ADEQUACY: Satisfactory for evaluation; transformation zone present. INTERPRETATION: NEGATIVE FOR INTRAEPITHELIAL LESION OR MALIGNANCY. This specimen was analyzed by the automated ThinPrep Imaging System ([employer] and the selected castaneda were reviewed by a mri assistant. Electronically Signed Out By: Tres Snyder MD By his/her signature above, the pathologist listed as making the Final Diagnosis certifies that he/she has personally reviewed this case and confirmed or corrected the diagnosis. The Pap test is a screening test primarily for squamous cancers and precursors and has associated false-negative and false-positive results. New technologies such as liquid-based preparations may decrease but will not eliminate all false-negative results. Regular sampling and follow-up of unexplained clinical signs and symptoms are recommended to minimize false negative results. PROCEDURES/ADDENDA HPV Testing (Requested) Ordered Date: 11/24/2023 A. PAP SMEAR (THIN PREP) CE: Human Papilloma Virus Test NEGATIVE for high-risk Human Papilloma Virus types 16, 18, 45 and the Other high risk probe set (Includes 31, 33, 35, 39, 51, 52, 56, 58, 59, 66, 68) Note: Testing performed by [employer] HR-HPV analysis. Clinical correlation is advised. This HPV test was performed at [facility], [address] [place] [address]. This test has been FDA approved for both SurePath and ThinPrep cervical cytology specimens. The accuracy and precision of this test for all other specimen sources has been verified in the Cytopathology Laboratory of the [facility] and has not been cleared or approved by the U.S. Food and Drug Administration. Clinical correlation is advised. CLINICAL HISTORY Date of Last Menstrual Period: Not Provided Menstrual History: Post Menopausal Other Clinical Conditions: Screening Pap SPECIMEN SOURCE A: PAP SMEAR (THIN PREP) CE Patient Name: MARY HUSTON : 1965 (Age: 58) Sex: F Institution: [facility] Location: [facility] Date of Collection: 11/23/2023 Date of Reported: 12/01/2023 09:42 Results to: Enriqueta Leong MD [facility] Final Diagnosis A. PAP SMEAR (THIN PREP) CE: SPECIMEN ADEQUACY: Satisfactory for evaluation; transformation zone present. INTERPRETATION: NEGATIVE FOR INTRAEPITHELIAL LESION OR MALIGNANCY. This specimen was analyzed by the automated ThinPrep Imaging System ([employer] and the selected castaneda were reviewed by a mri assistant. [facility] Results\Inter pretation A. PAP SMEAR (THIN PREP) CE: Human Papilloma Virus TestNEGATIVE for high-risk Human Papilloma Virus types 16, 18, 45 and the Other high risk probe set (Includes 31, 33, 35, 39, 51, 52, 56, 58, 59, 66, 68)Note: Testing performed by [employer] HR-HPV analysis. Clinical correlation is advised. This HPV test was performed at [facility], [address] [place] [address]. This test has been FDA approved for both SurePath and ThinPrep cervical cytology specimens. The accuracy and precision of this test for all other specimen sources has been verified in the Cytopathology Laboratory of the [facility] and has not been cleared or approved by the U.S. Food and Drug Administration. Clinical correlation is advised. [facility] Conversion Type (Conversion Source) 11/23/2023 11/24/2023 9:02 AM EDT us Enriqueta Zhu MD CYTOLOGY ORDERABLES Edite d Result - Final [facility] [address] [place] [address] * BI MAMMOGRAM SCREENING WITH TOMOSYNTHESIS WITH CAD (BILATERAL) (08/04/2021 9:32 AM EDT) Anatomical Region Laterality Modality Breast Left, Breast Right, Breast Bilateral Bila teral Mammography 08/04/2021 9:51 AM EDT Impressions 08/04/2021 9:54 AM EDT No mammographic evidence of malignancy. Recommend routine annual surveillance. BI-RADS CATEGORY: 1 - Negative. DENSITY: There are scattered fibroglandular densities. Narrative 08/04/2021 9:54 AM EDT 55-year-old female with no current breast symptoms. Comparison made to previous on 05/12/2019 and as far back as 02/07/2015. Interpretation made in conjunction with computer-aided detection and tomosynthesis. There are scattered areas of fibroglandular density. There are no suspicious masses, areas of architectural distortion, or suspicious clusters of microcalcifications. Procedure Note Kike Gallegos MD - 08/04/2021 55-year-old female with no current breast symptoms. Comparison made toprevious on 05/12/2019 and as far back as 02/07/2015. Interpretation madein conjunction with computer-aided detection and tomosynthesis. There are scattered areas of fibroglandular density. There are no suspicious masses, areas of architectural distortion, orsuspicious clusters of microcalcifications. IMPRESSION: No mammographic evidence of malignancy. Recommend routine annualsurveillance. BI-RADS CATEGORY: 1 - Negative. DENSITY: There are scattered fibroglandular densities. Merna Mills MD IMG MG EXAMS Final Re sult from Last 3 Months or Most Recently Relevant to Health Maintenance Additional Health Concerns Infection Onset Date Last Indicated Resp-Risk 02/14/2025 02/14/[address] [id number] [id number] [id number] [id number] [id number] [facility] Member Subscriber Plan / Payer (Ef fective 2023-Present) Name:Mary Huston Relation to Subscriber:Self Name:Mary Huston Payer ID:Not on file Type:PPO Address: [place] [id number] Care Teams Cpr Ambulance Driver Relationship Specialty Start Date End Date Enriqueta Zhu MD [address] [place] [address] [address] [place] [address] [email or web address] PCP - General Family Medicine 11/14/24 Merna Mills MD [address] [place] [id number] [email or web address] Medicine 12/29/17 Nati Minor MD [address] [place] [address], [address] [place] [address] [email or web address] Historical LMR Provider 01/27/17 Additional Source Comments The information contained in this document represents components of the legal health record. It is not the complete legal health record.[facility]
--- OUTSIDE RECORDS SUMMARY | 2025-02-14 17:28 | XMS_ITS | Encounter Summary ---
Author Organization [facility] Address [address] [facility] [address] [place] [address] Phone Care Team Providers Care Coil Connector Repairer Name Role Phone Merna Mills MD Primary Care Provider + Merna Mills MD Unavailable [phone] Nati Minor MD Unavailable [phone] Enriqueta Zhu MD Primary Care Provider [phone] Enriqueta Zhu MD Primary Care Provider [phone] Encounter Details Date Type Department Care Team (Late st Contact Info) Description 11/22/2019 Transcribe Orders Virtual Department [address] [place] [address] Merna Mills MD [address] [place] [address] [email or web address] Pain in right lower leg (Primary Dx) Social History Tobacco Use Types [...] * XR Tibia Fibula 2 Views (Right) (11/22/2019 3:34 PM EDT) Anatomical Region Laterality Modality Leg Right Radiographic Colleen ging 11/22/2019 3:42 PM EDT Impressions 11/22/2019 3:43 PM EDT No acute bony abnormality. POS [id number] Narrative 11/22/2019 3:43 PM EDT Frontal and lateral views disclose no fracture, subluxation, or other acute abnormality involving the visualized regional skeletal structures. Arthritic changes are present at the level of the knee and ankle. Plantar calcaneal spurring is seen. Procedure Note Irwin Melton MD - 11/22/2019 Frontal and lateral views disclose no fracture, subluxation, or otheracute abnormality involving the visualized regional skeletal structures.Arthritic changes are present at the level of the knee and ankle. Plantarcalcaneal spurring is seen. IMPRESSION: No acute bony abnormality. POS [email or web address] us Merna Mills MD IMG XR LOWER EXTREMITY F inal Result * XR KNEE 4 OR MORE VIEWS (RIGHT) (11/22/2019 3:34 PM EDT) Anatomical Region Laterality Modality Knee Right Radiographic Colleen ging 11/22/2019 3:41 PM EDT Impressions 11/22/2019 3:42 PM EDT Degenerative change without acute traumatic bony abnormality or gross suprapatellar effusion. POS - [id number] Narrative 11/22/2019 3:42 PM EDT COMPARISON: Outside study dated 12/07/2018 FINDINGS: Frontal, lateral, and oblique views were obtained revealing no fracture, subluxation, or other acute bony abnormality. There is chronic narrowing of the medial compartment with periarticular spurring present. No gross suprapatellar effusion noted. Procedure Note Irwin Melton MD - 11/22/2019 COMPARISON: Outside study dated 12/07/2018 FINDINGS: Frontal, lateral, and oblique views were obtained revealing no fracture,subluxation, or other acute bony abnormality. There is chronic narrowingof the medial compartment with periarticular spurring present. No grosssuprapatellar effusion noted. IMPRESSION: Degenerative change without acute traumatic bony abnormality or grosssuprapatellar effusion. POS - [email or web address] us Merna Mills MD IMG XR LOWER EXTREMITY F inal Result * XR FEMUR (RIGHT) 2 VIEWS (11/22/2019 3:33 PM EDT) Anatomical Region Laterality Modality Thigh Right Radiographic Colleen ging 11/22/2019 3:36 PM EDT Impressions 11/22/2019 3:41 PM EDT No acute bony abnormality. POS [email or web address] Narrative 11/22/2019 3:41 PM EDT Frontal and lateral views reveal no fracture, subluxation, or other acute bony abnormality. Procedure Note Irwin Melton MD - 11/22/2019 Frontal and lateral views reveal no fracture, subluxation, or other acutebony abnormality. IMPRESSION: No acute bony abnormality. POS [email or web address] eMrna Mills MD IMG XR LOWER EXTREMITY F inal Result documented in this encounter Visit Diagnoses Diagnosis Pain in right lower leg- Primary Pain in right lower leg Pain in right lower leg Pain in right lower leg documented in this encounter Additional Health Concerns Infection Onset Date Last Indicated Resolved Time Resp-Risk 02/14/2025 02/14/2025 documented as of this encounter Care Teams Coil Connector Repairer Relationship Specialty Start Date End Date Merna Mills MD [address] [place] [address] PCP - General Family Medicine 12/29/17 05/06/22 Enriqueta Zhu MD [address] [place] [address] 7 [place] [address] [email or web address] PCP - General Family Medicine 05/07/22 11/13/24 Enriqueta Zhu MD [address] [place] [address] 7 [place] [address] [email or web address] PCP - General Family Medicine 11/14/24 Merna Mills MD [address] [place] [address] [email or web address] Family Medicine 12/29/17 Nati Minor MD [address] [place] [address] [email or web address] Historical LMR Provider 01/27/17 documented as of this encounter Additional Source Comments The information contained in this document represents components of the legal health record. It is not the complete legal health record.[facility]
--- OUTSIDE RECORDS SUMMARY | 2025-02-14 17:28 | XMS_ITS | Encounter Summary ---
Author Organization [facility] Address [address] [facility] [address] [place] [address] Phone Care Team Providers Care Shoemaking Cutter Name Role Phone Merna Mills MD Primary Care Provider + Merna Mills MD Unavailable [phone] Nati Minor MD Unavailable [phone] Enriqueta Zhu MD Primary Care Provider [phone] Enriqueta Zhu MD Primary Care Provider [phone] Reason for Referral * MRI/CAT Scan - Closed Specialty Diagnoses / Procedures Referred By Lukas marr Referred To Contact Radiology Diagnoses Pain in right lower leg Paresthesias Procedures MRI Tibia and Fibula (Right) Merna Mills MD Phone: tel: fax: [email or web address] Referral ID Status Reason Start Date Expiration Date Visits Re quested Visits Authorized [id number] Closed 06/06/2019 08/05/2019 1 1 Encounter Details Date Type Department Care Team (Late st Contact Info) Description 06/09/2019 Transcribe Orders Virtual Department 30 [place] [address] Merna Mills MD [address] [place] [address] Pain in right lower leg (Primary Dx); Paresthesias Social History Tobacco Use Types Packs/Day Years [...] documented as of this encounter Results * MRI TIBIA AND FIBULA WITH AND WITHOUT CONTRAST (RIGHT) (06/16/2019 10:24 AM EST) Anatomical Region Laterality Modality Leg Right Magnetic Resonan ce 06/16/2019 10:2 5 AM EST Impressions 06/16/2019 10:52 AM EST Prominent joint effusion at the level of the knee with diffuse synovial enhancement. Ill-defined partially enhancing cystic foci in the dorsal soft tissues, surrounded by edema, are relatively non-specific and could reflect posterior extension of effusion, superinfected Arbago's cyst, or hematoma. Appearance does not suggest popliteal pseudoaneurysm or enhancing mass. Orthopedic consultation and joint fluid sampling are recommended to exclude septic arthritis. Medial meniscal pathology, as above. No significant skeletal or soft tissue abnormality identified in the remainder of the lower leg when allowing for fluid in the retrocalcaneal bursa and along the margins of the distal Achilles which could be correlated with clinical findings. [id number] Narrative 06/16/2019 10:52 AM EST TECHNIQUE: Examination performed on a 1.5 Prema high-field strength MRI unit. Sagittal and coronal T1 and STIR; axial T1, T2 FSE, T1 with fat saturation, and STIR followed by axial T1 fat sat after intravenous gadolinium administration FINDINGS: Comparison is made with the prior ultrasound of 06/05/2019 and radiographs of the lower leg dated 06/07/2019. There is moderately large joint effusion at the level of the knee with diffuse enhancement of the synovium. There are ill-defined mixed fluid and heterogeneously T2 signal foci along the dorsal aspect of the knee extending posterior from the intercondylar notch, surrounded by ill-defined soft tissue edema and enhancement. It is unclear whether this represents dorsal extension of the effusion versus a complex and possibly superinfected popliteal cyst. Margins are not well delineated but the lesion is estimated at 2.5 x 1.8 cm in transverse dimensions. Study was not tailored for evaluation of the knee but there seems to be absence of a significant portion of the medial meniscus, presumably reflecting tearing and degeneration. No gross lateral meniscal pathology detected. There is some patchy and presumed reactive marrow edema in the distal femur and proximal tibia. I do not identify cruciate ligament disruption. There is a chronic mild medial bowing deformity of the tibial shaft but no fracture or significant abnormality of tibial or fibular cortical or marrow edema are detected. No soft tissue mass or evidence of compartment syndrome. Fluid is present in the retrocalcaneal bursa. There is a small amount of fluid surrounding the distal Achilles tendon, which is intact. Procedure Note Walker Cordoba MD - 06/16/2019 TECHNIQUE: Examination performed on a 1.5 Prema high-field strength MRIunit. Sagittal and coronal T1 and STIR; axial T1, T2 FSE, T1 with fatsaturation, and STIR followed by axial T1 fat sat after intravenousgadolinium administration FINDINGS: Comparison is made with the prior ultrasound of 06/05/2019 and radiographsof the lower leg dated 06/07/2019. There is moderately large joint effusion at the level of the knee withdiffuse enhancement of the synovium. There are ill-defined mixed fluidand heterogeneously T2 signal foci along the dorsal aspect of the kneeextending posterior from the intercondylar notch, surrounded byill-defined soft tissue edema and enhancement. It is unclear whether thisrepresents dorsal extension of the effusion versus a complex and possiblysuperinfected popliteal cyst. Margins are not well delineated but thelesion is estimated at 2.5 x 1.8 cm in transverse dimensions. Study wasnot tailored for evaluation of the knee but there seems to be absence of asignificant portion of the medial meniscus, presumably reflecting tearingand degeneration. No gross lateral meniscal pathology detected. There issome patchy and presumed reactive marrow edema in the distal femur andproximal tibia. I do not identify cruciate ligament disruption. There is a chronic mild medial bowing deformity of the tibial shaft but nofracture or significant abnormality of tibial or fibular cortical ormarrow edema are detected. No soft tissue mass or evidence of compartmentsyndrome. Fluid is present in the retrocalcaneal bursa. There is a smallamount of fluid surrounding the distal Achilles tendon, which is intact. IMPRESSION: Prominent joint effusion at the level of the knee with diffuse synovialenhancement. Ill-defined partially enhancing cystic foci in the dorsalsoft tissues, surrounded by edema, are relatively non-specific and couldreflect posterior extension of effusion, superinfected Rabago's cyst, orhematoma. Appearance does not suggest popliteal pseudoaneurysm orenhancing mass. Orthopedic consultation and joint fluid sampling arerecommended to exclude septic arthritis. Medial meniscal pathology, asabove. No significant skeletal or soft tissue abnormality identified in theremainder of the lower leg when allowing for fluid in the retrocalcanealbursa and along the margins of the distal Achilles which could becorrelated with clinical findings. [id number] us Merna Mills MD IMG MR EXTREMITY Final R esult documented in this encounter Visit Diagnoses Diagnosis Pain in right lower leg- Primary Paresthesias Disturbance of skin sensation Pain in right lower leg Paresthesias Disturbance of skin sensation documented in this encounter Additional Health Concerns Infection Onset Date Last Indicated Resolved Time Resp-Risk 02/14/2025 02/14/2025 documented as of this encounter Care Teams Shoemaking Cutter Relationship Specialty Start Date End Date Merna Mills MD [address] [place] [address] [email or web address] PCP - General Family Medicine 12/29/17 05/06/22 Enriqueta Zhu MD [address] [place] [address] 7 [place] [address] [email or web address] PCP - General Family Medicine 05/07/22 11/13/24 Enriqueta Zhu MD [address] [place] [address] 7 [place] [address] [email or web address] PCP - General Family Medicine 11/14/24 Merna Mills MD [address] [place] [address] Family Medicine 12/29/17 Nati Minor MD [address] [place] [address], [address] [place] [address] [email or web address] Historical LMR Provider 01/27/17 documented as of this encounter Additional Source Comments The information contained in this document represents components of the legal health record. It is not the complete legal health record.[facility]
--- OUTSIDE RECORDS SUMMARY | 2025-02-14 17:28 | XMS_ITS | Encounter Summary ---
Author Organization [facility] Address [address] [facility] [address] [place] [address] Phone Care Team Providers Care Real Estate Services Administrator Name Role Phone Merna Mills MD Unavailable [phone] Nati Minor MD Unavailable [phone] Enriqueta Zhu MD Primary Care Provider [phone] Reason for Visit * Reason Comments Medication Refill Encounter Details Date Type Department Care Team (Late st Contact Info) Description 02/11/2025 Refill [facility] [address] [place], [place] [id number] Archie Navas, DO [address] [facility] [address] [place], [place] [id number] [email or web address] Medication Refill Social History Tobacco Use Types Packs/Day Years [...] on file documented as of this encounter Progress Notes * Paris Mckeon, KIM - 02/13/2025 1:06 PM EST This medication has been prescribed in a separate encounter. * Alka Wright MA - 02/12/2025 4:40 PM EST [place] message sent about doxycycline. Patient should be all done taking this. Awaiting reply documented in this encounter Plan of Treatment Not on file documented as of this encounter Visit Diagnoses Diagnosis Chronic sinusitis, unspecified location documented in this encounter Additional Health Concerns Assessment Noted Time PHQ-2 Depression Total Score: 0 10/27/19 4:53 PM EDT documented as of this encounter Care Teams Real Estate Services Administrator Relationship Specialty Start Date End Date Enriqueta Zhu MD [address] [place] [address] [address] [place] [address] PCP - General Family Medicine 11/14/24 Merna Mills MD [address] [place] [address] Family Medicine 12/29/17 Nati Minor MD [address] [place] [address], [address] [place] [address] Historical LMR Provider 01/27/17 documented as of this encounter Additional Source Comments The information contained in this document represents components of the legal health record. It is not the complete legal health record.[facility]
--- OUTSIDE RECORDS SUMMARY | 2025-02-14 17:28 | XMS_ITS | Data Portability ---
Author Organization [facility] [address] Address [address] [place] [address] Assessment No assessment recorded. Plan of Treatment [...] By Organization Details Last Modified Time 04/16/2023 [id number] sore throat: car e instructions [email or web address] Not available 04/16/2023 09:55:50 Reason for Referral None Reported. 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 JESSIE Romo [facility] 09:48:41 Problem Notes [...] Updated DateTime 4 175.26 cm 31 kg/m2 10973.4 g 96 % 96 % 0 91 /min 18 /min 98.8 [degF] 133/72 [...] Diagnosis SNOMED-CT Code Diagnosis ICD10 Code Diagnosis IMO Codes Diagnosis Note [id number] [address] [place] [address] 10/27/2020 10:00:56 10/27/2020 11:45:42 [id number] [address] [place] [address] 03/11/2021 13:46:51 03/11/2021 15:55:15 [id number] [address] [place] [address] 08/02/2020 18:32:44 08/02/2020 19:44:46 [id number] JESSIE Hackett [address] [facility] [address] [place] [address] 04/16/2023 09:43:18 04/16/2023 10:03:49 Sore throat [id number] J02.9 Based on your Presentati on, Exam, [...] ID Ray Member ID Guarantor Name 04/16/[address] [place] [id number] Criselda Vidal [id number] Criselda Vidal Notes Date Note Type Note Provider Name and Address Organization Details Recorded Time 04/16/2023 text/html 57 y/o female here with L sided tonsil pain x 5 days. She has no other symptoms, no cough, congestion, runny nose. She is concerned maybe one of her pills got stuck there JESSIE Hackett [address], [place], [address], [place] - [facility] 04/16/2023 10:03:53 OBGyn Episode No OBEpisode recorded.
--- OUTSIDE RECORDS SUMMARY | 2025-02-14 17:28 | XMS_ITS | Encounter Summary ---
Author Organization [facility] Address [address] [facility] [address] [place] [address] Phone Care Team Providers Care Stick Puller Name Role Phone Merna Mills MD Primary Care Provider + Merna Mills MD Unavailable [phone] Nati Minor MD Unavailable [phone] Enriqueta Zhu MD Primary Care Provider [phone] Enriqueta Zhu MD Primary Care Provider [phone] Encounter Details Date Type Department Care Team (Late st Contact Info) Description 06/05/2019 Ancillary Orders Virtual Department [address] [place] [address] Merna Mills MD [address] [place] [address] [email or web address] Pain in right leg Social History Tobacco Use Types Packs/Day [...] documented as of this encounter Results * US Lower Extremity Veins Duplex (Right) (06/05/2019 6:19 PM EST) Anatomical Region Laterality Modality Hip Right, Thigh Right, Knee Right, Leg Right, Ankle Right, Foot Right Ultrasound 06/05/2019 6:39 PM EST Addenda Addendum by Dejon Nicole MD on 06/08/2019 12:21 PM EST Given the patient's acute worsening of symptoms, MRI can be obtained for confirmation and further evaluation as clinically warranted. This was discussed with Dr. Mills 06/08/2019. Impressions 06/05/2019 6:50 PM EST 1. No deep venous thrombosis of the right lower extremity. 2. 4 x 2.8 x 2.7 cm complex cystic mass adjacent to the right popliteal artery and vein. This may represent a complicated Rabago's cyst or hematoma. Follow-up ultrasound can be obtained to assess for interval change. Narrative 06/05/2019 6:50 PM EST US LOWER EXTREMITY VEINS DUPLEX (RIGHT) PAIN IN RIGHT LEG Pain in right leg R/O DVT . COMPARISON: None IMAGING TECHNIQUE: Ultrasound of the veins from the groin through the calf was performed using grayscale, color, and spectral Doppler ultrasound assessing for complete compressibility and normal flow characteristics. Common femoral vein: Patent. No thrombosis. Femoral vein: Patent. No thrombosis. Popliteal vein: Patent. No thrombosis. Posterior tibial veins: The visualized portions are patent without evidence of thrombosis. OTHER FINDINGS: There is an heterogeneous mixed echogenicity lesion situated medial to the popliteal artery and vein which measures approximately 4 cm x 2.8 cm x 2.7 cm. Hypoechoic and isoechoic components are present, and there is no internal vascularity. Through transmission is noted. This was tender during the course of the examination. Procedure Note Dejon Nicole MD - 06/05/2019 US LOWER EXTREMITY VEINS DUPLEX (RIGHT) PAIN IN RIGHT LEG Pain in right leg R/O DVT . COMPARISON: None IMAGING TECHNIQUE: Ultrasound of the veins from the groin through the calfwas performed using grayscale, color, and spectral Doppler ultrasoundassessing for complete compressibility and normal flow characteristics. Common femoral vein: Patent. No thrombosis. Femoral vein: Patent. No thrombosis. Popliteal vein: Patent. No thrombosis. Posterior tibial veins: The visualized portions are patent withoutevidence of thrombosis. OTHER FINDINGS: There is an heterogeneous mixed echogenicity lesionsituated medial to the popliteal artery and vein which measuresapproximately 4 cm x 2.8 cm x 2.7 cm. Hypoechoic and isoechoic componentsare present, and there is no internal vascularity. Through transmission isnoted. This was tender during the course of the examination. IMPRESSION: 1. No deep venous thrombosis of the right lower extremity. 2. 4 x 2.8 x 2.7 cm complex cystic mass adjacent to the right poplitealartery and vein. This may represent a complicated Rabago's cyst orhematoma. Follow-up ultrasound can be obtained to assess for intervalchange. us Merna Mills MD CV US VASCULAR Edited R esult - Final documented in this encounter Visit Diagnoses Diagnosis Pain in right leg Pain in right leg documented in this encounter Additional Health Concerns Infection Onset Date Last Indicated Resolved Time Resp-Risk 02/14/2025 02/14/2025 documented as of this encounter Care Teams Stick Puller Relationship Specialty Start Date End Date Merna Mills MD [address] [place] [address] [email or web address] PCP - General Family Medicine 12/29/17 05/06/22 Enriqueta Zhu MD [address] [place] [address] PCP - General Family Medicine 05/07/22 11/13/24 Enriqueta Zhu MD [address] [place] [address] PCP - General Family Medicine 11/14/24 Merna Mills MD [address] [place] [address] [email or web address] Family Medicine 12/29/17 Nati Minor MD [address] [place] [address], [address] [place] [address] [email or web address] Historical LMR Provider 01/27/17 documented as of this encounter Additional Source Comments The information contained in this document represents components of the legal health record. It is not the complete legal health record.[facility]
--- OUTSIDE RECORDS SUMMARY | 2025-02-14 17:29 | XMS_ITS | Encounter Summary ---
Author Organization [facility] Address [address] [facility] [address] [place] [address] Phone Care Team Providers Care Women Specialist Name Role Phone Merna Mills MD Primary Care Provider + Merna Mills MD Unavailable [phone] Nati Minor MD Unavailable [phone] Enriqueta Zhu MD Primary Care Provider [phone] Enriqueta Zhu MD Primary Care Provider [phone] Encounter Details Date Type Department Care Team (Late st Contact Info) Description 08/12/2021 Ancillary Orders Virtual Department [address] [place] [address] Speedy Lee MD [address] [place] [address] Chronic foot pain, unspecified laterality Social History Tobacco Use Types Packs/Day Years [...] as of this encounter Results * XR FOOT 3 OR MORE VIEWS (LEFT) (08/12/2021 2:01 PM EDT) Anatomical Region Laterality Modality Foot Left Computed Radiogr aphy 08/12/2021 4:12 PM EDT Impressions 08/12/2021 4:27 PM EDT 1. Right: Osteoarthritic changes involving the foot and ankle. 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 Possible tiny loose bodies within the posterior aspect of the ankle joint. Moderate-size plantar calcaneal spur. Mild hallux valgus. 2. Left: Osteoarthritic changes involving the foot and ankle. 6 mm well- corticated ossific density overlying the anterior tibiotalar joint. Intra-articular loose body is possible. Moderate sized plantar calcaneal spur. Hallux valgus somewhat more prominent than on the right. Narrative 08/12/2021 4:27 PM EDT HISTORY: Bilateral foot pain for 6 months, no known trauma. COMPARISON: Right foot x-ray 12/10/2015. VIEWS: 3 views of each foot. 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 Tiny densities persisting in the region of the posterior aspect of the ankle joint. Marginal spurring at the tarsometatarsal and intertarsal joints, mildly progressed from from 12/10/2015. Mild marginal spurring at the first MTP joint. No evidence of erosions. Similar moderate size plantar calcaneal spur. No evidence of acute fractures. No subluxations or dislocations. Mild hallux valgus. Left foot and ankle: 6 m well-corticated density overlying the anterior tibiotalar joint on the lateral view. Prominent hypertrophic bone change with bony bridging of the dorsal aspect of the intertarsal joints. Mild marginal spurring at other intertarsal joints. Mild-moderate marginal spurring at the tarsometatarsal joints. No evidence of erosions. No evidence of acute fractures. No subluxations or dislocations. Moderate-sized plantar calcaneal spur. Procedure Note Nino Langley MD - 08/12/2021 HISTORY: Bilateral foot pain for 6 months, no known trauma. COMPARISON: Right foot x-ray 12/10/2015. VIEWS: 3 views of each foot. FINDINGS: Right foot and ankle: Spurring between the dorsal aspect of the talus andanterior aspect of the distal tibia appears stable and may be a chronicpseudoarthrosis. Tiny densities persisting in the region of the posterioraspect of the ankle joint. Marginal spurring at the tarsometatarsal andintertarsal joints, mildly progressed from from 12/10/2015. Mild marginalspurring at the first MTP joint. No evidence of erosions. Similar moderatesize plantar calcaneal spur. No evidence of acute fractures. Nosubluxations or dislocations. Mild hallux valgus. Left foot and ankle: 6 m well-corticated density overlying the anteriortibiotalar joint on the lateral view. Prominent hypertrophic bone changewith bony bridging of the dorsal aspect of the intertarsal joints. Mildmarginal spurring at other intertarsal joints. Mild-moderate marginalspurring at the tarsometatarsal joints. No evidence of erosions. Noevidence of acute fractures. No subluxations or dislocations.Moderate-sized plantar calcaneal spur. IMPRESSION: 1. Right: Osteoarthritic changes involving the foot and ankle. 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 Possible tiny loosebodies within the posterior aspect of the ankle joint. Moderate-sizeplantar calcaneal spur. Mild hallux valgus. 2. Left: Osteoarthritic changes involving the foot and ankle. 6 mmwell- corticated ossific density overlying the anterior tibiotalar joint.Intra-articular loose body is possible. Moderate sized plantar calcanealspur. Hallux valgus somewhat more prominent than on the right. Speedy Phoebe Lee MD IMG XR LOWER EXTREMITY Fi nal Result documented in this encounter Visit Diagnoses Diagnosis Chronic foot pain, unspecified laterality Chronic foot pain, unspecified laterality documented in this encounter Additional Health Concerns Infection Onset Date Last Indicated Resolved Time Resp-Risk 02/14/2025 02/14/2025 documented as of this encounter Care Teams Women Specialist Relationship Specialty Start Date End Date Merna Mills MD [address] [place] [address] [email or web address] PCP - General Family Medicine 12/29/17 05/06/22 Enriqueta Zhu MD [address] [place] [address] [address] [place] [address] [email or web address] PCP - General Family Medicine 05/07/22 11/13/24 Enriqueta Zhu MD [address] [place] [address] 7 [place] [address] [email or web address] PCP - General Family Medicine 11/14/24 Merna Mills MD [address] [place] [address] [email or web address] Family Medicine 12/29/17 Nati Minor MD [address] [place] [address] [email or web address] Historical LMR Provider 01/27/17 documented as of this encounter Additional Source Comments The information contained in this document represents components of the legal health record. It is not the complete legal health record.[facility]
--- OUTSIDE RECORDS SUMMARY | 2025-02-14 17:29 | XMS_ITS | Encounter Summary ---
Author Organization [facility] Address [address] [facility] [address] [place] [address] Phone Care Team Providers Care Release Coordinator Name Role Phone Merna Mills MD Primary Care Provider + Merna Mills MD Unavailable [phone] Nati Minor MD Unavailable [phone] Enriqueta Zhu MD Primary Care Provider [phone] Enriqueta Zhu MD Primary Care Provider [phone] Encounter Details Date Type Department Care Team (Late st Contact Info) Description 02/25/2021 Transcribe Orders [address] [place] [address] Jose Francisco Ribeiro, DO [address] [facility], [address] [place], [place] [id number] [email or web address] Diagnosis unknown (Primary Dx) Social History Tobacco Use Types [...] documented as of this encounter Results * 2,3-DINOR-11 BETA-PROSTAGLANDIN F2 ALPHA, 24 HOUR URINE (02/25/2021 6:00 AM EST) 2,3 BPG, 24 Hour Urine <417 <1802 pg/mg Cr [facility] Comment: (NOTE) ADDITIONAL INFORMATION Cautions: 2,3BPG will be decreased in individuals who have taken aspirin within two weeks or other NSAIDs within 72 hours. This test was developed and its performance characteristics determined by [facility] in a manner consistent with CLIA requirements. This test has not been cleared or approved by the U.S. Food and Drug Administration. Creatinine, 24 Hour, U 1,275 603 - 1,783 mg/24 h [facility] DPT OF LAB MED AND PAT+ PRABHA DURATION CTU 24 h [facility] DPT OF LAB MED AND PAT+ URINE VOLUME CTU 1,700 mL [facility] DPT OF LAB MED AND PAT+ Blood 02/25/2021 6:00 AM EST 02/25/2021 1:50 PM EST us Jose Francisco Ribeiro DO URINE ORDERABLES Final Resul t [facility] DPT OF LAB MED AND PAT+ [address] [place] [address] [facility] [address] [place] [address] * Prostaglandin D2 (PG D2), Random Urine (02/25/2021 6:00 AM EST) PG D2 Random Urine 109 ng/L [facility] RE[facility]ERR[facility] Comment: (NOTE) ADDITIONAL INFORMATION Reported per liter basis.* *No reference intervals available for this test. This test was performed using a kit that has not been cleared or approved by the FDA and is designated as research use only. The analytic performance characteristics of this test have been determined by [employer]. This test is not intended for diagnosis or patient management decisions without confirmation by other medically established means. Test Performed by: [employer] [address] [place] [address] Blood 02/25/2021 6:00 AM EST 02/25/2021 1:50 PM EST [facility] LAB BLOOD ORDERABLES Final R esult [facility] REFERR[facility] * N-Methylhistamine, 24 hr urine (02/25/2021 6:00 AM EST) N-Methylhistamine, 24 Hr 172 30 - 200 mcg/g Cr [facility] DEPT [facility] Comment: (NOTE) ADDITIONAL INFORMATION This test was developed and its performance characteristics determined by [facility] in a manner consistent with CLIA requirements. This test has not been cleared or approved by the U.S. Food and Drug Administration. Creatinine, 24 Hour, U 1,258 603 - 1,783 mg/24 h [facility] DPT OF LAB MED AND PAT+ PRABHA DURATION CTU 24 h [facility] DPT OF LAB MED AND PAT+ URINE VOLUME CTU 1,700 mL [facility] DPT OF LAB MED AND PAT+ Urine (Urine) 02/25/2021 6:0 0 AM EST 02/25/2021 1:49 PM EST [employer] URINE ORDERABLES Final Resul t Performing Organization Address City/[facility]/ZIP Co de Phone Number [facility] DPT OF LAB MED AND PAT+ [address] [place] [address] [facility] MED[facility] [address] [place] [address] documented in this encounter Visit Diagnoses Diagnosis Diagnosis unknown- Primary documented in this encounter Additional Health Concerns Infection Onset Date Last Indicated Resolved Time Resp-Risk 02/14/2025 02/14/2025 documented as of this encounter Care Teams Release Coordinator Relationship Specialty Start Date End Date Merna Mills MD [address] [place] [address] [email or web address] PCP - General Family Medicine 12/29/17 05/06/22 Enriqueta Zhu MD [address] [place] [address] 7 [place] [address] [email or web address] PCP - General Family Medicine 05/07/22 11/13/24 Enriqueta Zhu MD [address] [place] [address] 7 [place] [address] [email or web address] PCP - General Family Medicine 11/14/24 Merna Mills MD [address] [place] [address] [email or web address] Family Medicine 12/29/17 Nati Minor MD [address] [place] [address] [email or web address] Historical LMR Provider 01/27/17 documented as of this encounter Additional Source Comments The information contained in this document represents components of the legal health record. It is not the complete legal health record.[facility]
--- OUTSIDE RECORDS SUMMARY | 2025-02-14 17:29 | XMS_ITS | Encounter Summary ---
Author Organization [facility] Address [address] [facility] [address] [place] [address] Phone Care Team Providers Care Salon Leader Name Role Phone Merna Mills MD Primary Care Provider + Merna Mills MD Unavailable [phone] Nati Minor MD Unavailable [phone] Enriqueta Zhu MD Primary Care Provider [phone] Enriqueta Zhu MD Primary Care Provider [phone] Encounter Details Date Type Department Care Team (Late st Contact Info) Description 04/10/2021 Ancillary Orders [facility], X-Ray - [address] [place] [address] Merna Mills MD [address] [place] [address] [email or web address] Pain in right ankle and joints of right foot Social History Tobacco Use Types Packs/Day Years [...] as of this encounter Results * XR ANKLE 3 OR MORE VIEWS (RIGHT) (04/10/2021 10:03 AM EST) Anatomical Region Laterality Modality Ankle Right Computed Radiogr aphy 04/10/2021 10:0 4 AM EST Impressions 04/10/2021 10:08 AM EST 1.Lateral ankle and dorsal ankle soft tissue fullness which may reflect swelling. 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 Narrative 04/10/2021 10:08 AM EST COMPARISON: Right tibia-fibula radiographs 11/22/2019. RIGHT ANKLE RADIOGRAPH FINDINGS: 3 images obtained. No acute fracture or malalignment. Chronic medial malleolus avulsion fracture and small plantar calcaneal spur. No erosions. No destructive or suspicious bone lesions. New mild soft tissue fullness in the lateral ankle and dorsal ankle. Procedure Note Kike Gallegos MD - 04/10/2021 COMPARISON: Right tibia-fibula radiographs 11/22/2019. RIGHT ANKLE RADIOGRAPH FINDINGS: 3 images obtained. No acute fracture or malalignment. Chronic medial malleolus avulsionfracture and small plantar calcaneal spur. No erosions. No destructive orsuspicious bone lesions. New mild soft tissue fullness in the lateralankle and dorsal ankle. IMPRESSION: 1.Lateral ankle and dorsal ankle soft tissue fullness which may reflectswelling. 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 us Merna Mills MD IMG XR LOWER EXTREMITY F inal Result documented in this encounter Visit Diagnoses Diagnosis Pain in right ankle and joints of right foot Pain in right ankle and joints of right foot documented in this encounter Additional Health Concerns Infection Onset Date Last Indicated Resolved Time Resp-Risk 02/14/2025 02/14/2025 documented as of this encounter Care Teams Salon Leader Relationship Specialty Start Date End Date Merna Mills MD [address] [place], [place] [id number] [email or web address] PCP - General Family Medicine 12/29/17 05/06/22 Enriqueta Zhu MD [address] [place] [address] 7 [place] [address] [email or web address] PCP - General Family Medicine 05/07/22 11/13/24 Enriqueta Zhu MD [address] [place] [address] 7 [place] [address] [email or web address] PCP - General Family Medicine 11/14/24 Merna Mills MD [address] [place] [address] Family Medicine 12/29/17 Nati Minor MD [address] [place] [address], [address] [place] [address] [email or web address] Historical LMR Provider 01/27/17 documented as of this encounter Additional Source Comments The information contained in this document represents components of the legal health record. It is not the complete legal health record.[facility]
--- OUTSIDE RECORDS SUMMARY | 2025-02-14 17:29 | XMS_ITS | Encounter Summary ---
Author Organization [facility] Address [address] [facility] [address] [place] [address] Phone Care Team Providers Care Legal Biller Name Role Phone Merna Mills MD Unavailable [phone] Nati Minor MD Unavailable [phone] Enriqueta Zhu MD Primary Care Provider [phone] Reason for Visit * Reason Comments Medication Refill Encounter Details Date Type Department Care Team (Late st Contact Info) Description 02/11/2025 Refill [facility] [address] [place] [address] Selene Dutta, AUGUSTIN [address] [facility] [address] [place] [address] [email or web address] Medication Refill Social History Tobacco Use [...] as of this encounter Progress Notes * Victorina Tillman PA-C - 02/14/2025 5:00 PM EST PG note sent to patient; needs visit. Thank you! * Chito Wright MA - 02/14/2025 2:58 PM ESTAddended by: CHITO WRIGHT on: 02/14/2025 02:58 PM Modules accepted: Orders * Chito Wright MA - 02/14/2025 2:58 PM EST I dont see these were prescribed, patient is still asking. Please review and sign if ok At least one Rx below has no protocol and needs review. Rx Care Gap Status - Instructions for Clinical Staff (prescriber discretion applies): > Mismatch review guide > No future appt: Please schedule if appropriate. Visit Info Last visit: 11/23/2024 Archie Navas DO - Family Medicine [facility] > Requested f/u: Return in about 3 weeks (around 12/14/2024) for with PCP for chronic cough. Upcoming visit: None ACTIONS TAKEN BY Chito Wright MA - Criteria met. Rx(s) without protocol Renewal is at prescriber discretion. - ofloxacin - ofloxacin * Paris Mckeon NP - 02/13/2025 1:07 PM EST This medication has been prescribed in a separate encounter. * Chito Wright MA - 02/12/2025 4:42 PM EST Patient should be all set with oxfloxacin. Awaiting reply on gateway documented in this encounter Plan of Treatment Not on file documented as of this encounter Visit Diagnoses Diagnosis Dry eyes Unspecified tear film insufficiency Otalgia of both ears documented in this encounter Additional Health Concerns Infection Onset Date Last Indicated Resolved Time Resp-Risk 02/14/2025 02/14/2025 Assessment Noted Time PHQ-2 Depression Total Score: 0 10/27/19 4:53 PM EDT documented as of this encounter Care Teams Legal Biller Relationship Specialty Start Date End Date Enriqueta Zhu MD [address] [place] [address] 7 [place] [address] [email or web address] PCP - General Family Medicine 11/14/24 Merna Mills MD [address] [place] [address] Family Medicine 12/29/17 Nati Minor MD [address] [place] [address], [address] [place] [address] [email or web address] Historical LMR Provider 01/27/17 documented as of this encounter Additional Source Comments The information contained in this document represents components of the legal health record. It is not the complete legal health record.[facility]
--- OUTSIDE RECORDS SUMMARY | 2025-02-14 17:29 | XMS_ITS | Encounter Summary ---
Author Organization [facility] Address [address] [facility] [address] [place] [address] Phone Care Team Providers Care Senior Engineering Specialist Name Role Phone Merna Mills MD Primary Care Provider + Merna Mills MD Unavailable [phone] Nati Minor MD Unavailable [phone] Enriqueta Zhu MD Primary Care Provider [phone] Enriqueta Zhu MD Primary Care Provider [phone] Encounter Details Date Type Department Care Team (Late st Contact Info) Description 12/05/2018 Ancillary Orders Virtual Department [address] [place] [address] Merna Mills MD [address] [place] [address] Pain of right lower extremity; Localized swelling of right lower leg Social History Tobacco Use Types Packs/Day Years Used Date Smoking Tobacco: Never Assessed Comments No Sex and Gender Information Value Date Recorded Sex Assigned at Not on file Legal Sex Female 9:38 PM EDT Gender Identity Not on file Sexual Orientation Not on file documented as of this encounter Plan of Treatment Not on file documented as of this encounter Results * US Lower Extremity Veins Duplex (Right) (12/05/2018 4:47 PM EDT) Anatomical Region Laterality Modality Hip Right, Thigh Right, Knee Right, Leg Right, Ankle Right, Foot Right Ultrasound 12/05/2018 4:58 PM EDT Impressions 12/05/2018 4:59 PM EDT No evidence of deep venous thrombosis from the common femoral vein to the popliteal vein in the right lower extremity. POS - [id number] Narrative 12/05/2018 4:59 PM EDT Ultrasonic examination of the deep venous system of the right leg was performed from the common femoral vein into the upper calf and includes the posterior tibial vein at the ankle, and demonstrates preserved flow, compressibility, and augmentation throughout the visualized deep venous system. No Rabago's cyst. Procedure Note Azra Kimble MD - 12/05/2018 Ultrasonic examination of the deep venous system of the right leg wasperformed from the common femoral vein into the upper calf and includesthe posterior tibial vein at the ankle, and demonstrates preserved flow,compressibility, and augmentation throughout the visualized deep venoussystem. No Rabago's cyst. IMPRESSION: No evidence of deep venous thrombosis from the common femoral vein to thepopliteal vein in the right lower extremity. POS - [id number] us Merna Mills MD US VASCULAR Final Re sult documented in this encounter Visit Diagnoses Diagnosis Pain of right lower extremity Localized swelling of right lower leg Pain of right lower extremity Localized swelling of right lower leg documented in this encounter Additional Health Concerns Infection Onset Date Last Indicated Resolved Time Resp-Risk 02/14/2025 02/14/2025 documented as of this encounter Care Teams Senior Engineering Specialist Relationship Specialty Start Date End Date Merna Mills MD [address] [place] [address] PCP - General Family Medicine 12/29/17 05/06/22 Enriqueta Zuh MD [address] [place] [address], [address] [place] [address] PCP - General Family Medicine 05/07/22 11/13/24 nEriqueta Zhu MD [address] [place] [address] 7 [place] [address] PCP - General Family Medicine 11/14/24 Merna Mills MD [address] [place] [address] Family Medicine 12/29/17 Nati Minor MD [address] [place] [address], [address] [place] [address] Historical LMR Provider 01/27/17 documented as of this encounter Additional Source Comments The information contained in this document represents components of the legal health record. It is not the complete legal health record.[facility]
--- OUTSIDE RECORDS SUMMARY | 2025-02-14 17:29 | XMS_ITS | Encounter Summary ---
Author Organization [facility] Address [address] [facility] [address] [place] [address] Phone Care Team Providers Care Software Test Automation Engineer Name Role Phone Merna Mills MD Primary Care Provider + Merna Mills MD Unavailable [phone] Nati Minor MD Unavailable [phone] Enriqueta Zhu MD Primary Care Provider [phone] Enriqueta Zhu MD Primary Care Provider [phone] Reason for Referral * - Closed Specialty Diagnoses / Procedures Referred By Lukas marr Referred To Contact Diagnoses Diaphoresis Procedures Stress Test Exercise Merna Mills MD Phone: tel: fax: [email or web address] Referral ID Status Reason Start Date Expiration Date Visits Re quested Visits Authorized [id number] Closed 11/14/2018 11/14/2019 1 1 Encounter Details Date Type Department Care Team (Late st Contact Info) Description 11/14/2018 Ancillary Orders Virtual Department [address] [place] [address] Merna Mills MD [address] [place] [address] [email or web address] Diaphoresis Social History Tobacco Use Types Packs/Day Years Used Date Smoking Tobacco: Never Assessed Comments No Sex and Gender Information Value Date Recorded Sex Assigned at Not on file Legal Sex Female 9:38 PM EDT Gender Identity Not on file Sexual Orientation Not on file documented as of this encounter Plan of Treatment Not on file documented as of this encounter Results * Stress Test Exercise (11/30/2018 11:44 AM EDT) Max BP Systolic 160 mmHg [facility] Max BP Diastolic 72 mmHg [facility] Max HR 157 BPM [facility] Resting HR 89 BPM [facility] Resting BP Systolic 132 mmHg [facility] Resting BP Diastolic 82 mmHg [facility] Peak METS 13.4 METS [facility] Peak HR 150 BPM [facility] Anatomical Region Laterality Modality Heart Other 11/30/2018 11:1 1 AM EDT 11/30/2018 11:44 AM EDT Narrative 11/30/2018 12:06 PM EDT Response to Stress The patient exercised for minutes seconds, achieving 13.4 METS at peak exercise. Baseline blood pressure was 132/82 mmHg, and baseline heart rate was 89 bpm. The patient achieved a peak heart rate of 150 bpm, which is% of their maximum predicted heart rate. Patient exercised for 10:31 minutes on a standard [place] protocol achieving 13.4 METs and 92% MPHR (157 BPM). The test was terminated due to fatigue. SUMMARY: 1. RESTING ECG: Sinus rhythm with nonspecific ST/T wave ab normalities 2. EXERCISE ECG: No ECG changes meeting criteria for ischemia 3. SYMPTOMS: No chest pain 4. PHYSIOLOGY: Appropriate exercise physiology. Resting heart rate of 89 bpm monica to a max heart rate of 157 bpm, this represents 92% MPHR. Resting BP of 132/82 monica to a max BP of 80/72. Vital signs stable and returned to baseline prior to discharge from the lab. Achieved 13.4 METs consistent with good functional capacity for age. 5. ARRHYTHMIA: No ectopy CONCLUSION: Normal ECG portion of exercise stress test without ECG changes suggestive of ischemia and without symptoms concerning for angina. Appropriate exercise physiology. Good functional capacity. See attached stress report for full details. Beau Fraire APRN with Dr. Kirchhoffer . us Merna Mills MD CV STRESS ORDERABLES Fin al Result documented in this encounter Visit Diagnoses Diagnosis Diaphoresis Generalized hyperhidrosis Diaphoresis Generalized hyperhidrosis documented in this encounter Additional Health Concerns Infection Onset Date Last Indicated Resolved Time Resp-Risk 02/14/2025 02/14/2025 documented as of this encounter Care Teams Software Test Automation Engineer Relationship Specialty Start Date End Date Merna Mills MD [address] [place] [address] PCP - General Family Medicine 12/29/17 05/06/22 Enriqueta Zhu MD [address] [place] [address] 7 [place] [address] PCP - General Family Medicine 05/07/22 11/13/24 Enriqueta Zhu MD [address] [place] [address] PCP - General Family Medicine 11/14/24 Merna Mills MD [address] [place] [address] Family Medicine 12/29/17 Nati Minor MD [address] [place] [address], [address] [place] [address] Historical LMR Provider 01/27/17 documented as of this encounter Additional Source Comments The information contained in this document represents components of the legal health record. It is not the complete legal health record.[facility]
--- OUTSIDE RECORDS SUMMARY | 2025-02-14 17:29 | XMS_ITS | Encounter Summary ---
Author Organization [facility] Address [address] [address] [facility] [address] [place] [address] Phone Care Team Providers Care Fish And Wildlife Scientific Aid Name Role Phone Merna Mills MD Primary Care Provider + Merna Mills MD Unavailable [phone] Nati Minor MD Unavailable [phone] Enriqueta Zhu MD Primary Care Provider [phone] Enriqueta Zhu MD Primary Care Provider [phone] Encounter Details Date Type Department Care Team (Late st Contact Info) Description 12/29/2017 Ancillary Orders Virtual Department 30 [place] [address] Merna Mills MD [address] [place] [address] [email or web address] Hypoxemia; PARRA (dyspnea on exertion) Social History Tobacco Use Types Packs/Day Years Used Date Smoking Tobacco: Never Assessed Comments Unknown Sex and Gender Information Value Date Recorded Sex Assigned at Not on file Legal Sex Female 9:38 PM EDT Gender Identity Not on file Sexual Orientation Not on file documented as of this encounter Plan of Treatment Not on file documented as of this encounter Results * CT ANGIO CHEST WITH AND WITHOUT CONTRAST (12/29/2017 3:29 PM EDT) Anatomical Region Laterality Modality Chest, Thoracic Vasculature Comp uted Tomography 12/29/2017 5:14 PM EDT Impressions 12/29/2017 5:21 PM EDT Mild degenerative changes in the thoracic spine but otherwise essentially normal CT appearance of the chest. No evidence of pulmonary embolism nor other explanation of dyspnea. TOTAL CTDIvol: 94.3 mGy POS - [id number] Narrative 12/29/2017 5:21 PM EDT Automated Exposure Control. Multiplanar and 3-D reconstructions. Contrast enhanced exam with pulmonary arteriographic technique. No comparison FINDINGS: No evidence of pulmonary embolism nor right heart strain. No interstitial lung disease nor focal infiltrate. No nodules or masses. No endobronchial filling defects, The cuffing or bronchiectasis. No sign of tracheomalacia. No adenopathy. Heart and great vessels unremarkable. No significant coronary artery calcification. No esophageal pathology. No thyroid or adrenal lesions. Mild degenerative changes in the thoracic spine but no acute or worrisome bony abnormalities. Procedure Note Archie Rivas MD - 12/29/2017 Automated Exposure Control. Multiplanar and 3-D reconstructions. Contrast enhanced exam with pulmonary arteriographic technique. No comparison FINDINGS: No evidence of pulmonary embolism nor right heart strain. No interstitial lung disease nor focal infiltrate. No nodules or masses. No endobronchial filling defects, The cuffing or bronchiectasis. No sign of tracheomalacia. No adenopathy. Heart and great vessels unremarkable. No significant coronary arterycalcification. No esophageal pathology. No thyroid or adrenal lesions. Mild degenerative changes in the thoracic spine but no acute or worrisomebony abnormalities. IMPRESSION: Mild degenerative changes in the thoracic spine but otherwise essentiallynormal CT appearance of the chest. No evidence of pulmonary embolism norother explanation of dyspnea. TOTAL CTDIvol: 94.3 mGy POS - [id number] Merna Mills MD IMG CT CHEST Final Re sult documented in this encounter Visit Diagnoses Diagnosis Hypoxemia PARRA (dyspnea on exertion) Other dyspnea and respiratory abnormality Hypoxemia PARRA (dyspnea on exertion) Other dyspnea and respiratory abnormality documented in this encounter Additional Health Concerns Infection Onset Date Last Indicated Resolved Time Resp-Risk 02/14/2025 02/14/2025 documented as of this encounter Care Teams Fish And Wildlife Scientific Aid Relationship Specialty Start Date End Date Merna Mills MD [address] [place] [address] PCP - General Family Medicine 12/29/17 05/06/22 Enriqueta Zhu MD [address] [place] [address] 7 [place] [address] [email or web address] PCP - General Family Medicine 05/07/22 11/13/24 Enriqueta Zhu MD [address] [place] [address] 7 [place] [address] [email or web address] PCP - General Family Medicine 11/14/24 Merna Mills MD [address] [place] [address] Family Medicine 12/29/17 Nati Minor MD [address] [place] [address], [address] [address] Historical LMR Provider 01/27/17 documented as of this encounter Additional Source Comments The information contained in this document represents components of the legal health record. It is not the complete legal health record.[facility]
--- OUTSIDE RECORDS SUMMARY | 2025-02-14 17:29 | XMS_ITS | Encounter Summary ---
Author Organization [facility] Address [address] [facility] [address] [place] [address] Phone Care Team Providers Care Cat Scanner Operator Name Role Phone Merna Mills MD Primary Care Provider + Merna Mills MD Unavailable [phone] Nati Minor MD Unavailable [phone] Enriqueta Zhu MD Primary Care Provider [phone] Enriqueta Zhu MD Primary Care Provider [phone] Encounter Details Date Type Department Care Team (Late st Contact Info) Description 12/31/2017 Ancillary Orders Virtual Department 30 [place] [address] Merna Mills MD [address] [place] [address] [email or web address] Breast screening Social History Tobacco Use Types Packs/Day Years Used Date Smoking Tobacco: Never Assessed Comments Unknown Sex and Gender Information Value Date Recorded Sex Assigned at Not on file Legal Sex Female 9:38 PM EDT Gender Identity Not on file Sexual Orientation Not on file documented as of this encounter Plan of Treatment Not on file documented as of this encounter Results * (ABNORMAL) BI MAMMOGRAM SCREENING WITH TOMOSYNTHESIS WITH CAD (BILATERAL) (01/18/2018 9:08 AM EDT) Anatomical Region Laterality Modality Breast Left, Breast Right, Breast Bilateral Bila teral Mammography 01/18/2018 10:4 3 AM EDT Impressions 01/18/2018 11:49 AM EDT New focal asymmetries in the left lower outer quadrant. The patient is being recalled for additional mammogram views and ultrasound to determine whether they warrant biopsy. No other suspicious changes in either breast. Additional views: 3-D small spot CC, 3-D small spot MLO and 3-D non-spot true lateral. Non-guided ultrasound BI-RADS CATEGORY: 0 - Incomplete. Need additional imaging evaluation. DENSITY: There are scattered fibroglandular densities. LEFT RECOMMENDATION DUE DATE: 1 Month Additional Imaging RIGHT RECOMMENDATION DUE DATE: Annual Mammography Screening POS [email or web address] Edited by: Crystal Baez on 01/18/2018 11:42 AM Narrative 01/18/2018 11:49 AM EDT COMPARISON: 04/10/2011 through 04/30/2016. Bilateral 3-D tomosynthesis with 2-D reconstructions in the CC and MLO projection. Computer-aided detection system also utilized. Two ill-defined, lobulated areas of focally increased density adjacent to each other in the lateral left breast, slightly below midline have become apparent each measuring 12 or 13 mm in diameter. The patient is being recalled for additional mammogram views and ultrasound to determine what follow-up is needed. To some extent they were similar smaller findings in this area in 2010 which have resolved possibly indicating a benign process which is waxing and waning. No other new mass, asymmetry, architectural distortion or suspicious calcifications have become apparent on either side. Procedure Note Archie Rivas MD - 01/18/2018 COMPARISON: 04/10/2011 through 04/30/2016. Bilateral 3-D tomosynthesis with 2-D reconstructions in the CC and MLOprojection. Computer-aided detection system also utilized. Two ill-defined, lobulated areas of focally increased density adjacent toeach other in the lateral left breast, slightly below midline have becomeapparent each measuring 12 or 13 mm in diameter. The patient is beingrecalled for additional mammogram views and ultrasound to determine whatfollow-up is needed. To some extent they were similar smaller findings in this area in 2010which have resolved possibly indicating a benign process which is waxingand waning. No other new mass, asymmetry, architectural distortion or suspiciouscalcifications have become apparent on either side. IMPRESSION: New focal asymmetries in the left lower outer quadrant. The patient isbeing recalled for additional mammogram views and ultrasound to determinewhether they warrant biopsy. No other suspicious changes in eitherbreast. Additional views: 3-D small spot CC, 3-D small spot MLO and 3-D non-spottrue lateral. Non-guided ultrasound BI-RADS CATEGORY: 0 - Incomplete. Need additional imaging evaluation. DENSITY: There are scattered fibroglandular densities. LEFT RECOMMENDATION DUE DATE: 1 Month Additional Imaging RIGHT RECOMMENDATION DUE DATE: Annual Mammography Screening POS [email or web address] Edited by: Crystal Baez on 01/18/2018 11:42 AM us Merna Mills MD IMG MG EXAMS Final Re sult documented in this encounter Visit Diagnoses Diagnosis Breast screening Breast screening, unspecified Breast screening Breast screening, unspecified documented in this encounter Additional Health Concerns Infection Onset Date Last Indicated Resolved Time Resp-Risk 02/14/2025 02/14/2025 documented as of this encounter Care Teams Cat Scanner Operator Relationship Specialty Start Date End Date Merna Mills MD [address] [place] [address] [email or web address] PCP - General Family Medicine 12/29/17 05/06/22 Enriqueta Zhu MD [address] [place] [address] [address] [place] [address] [email or web address] PCP - General Family Medicine 05/07/22 11/13/24 Enriqueta Zhu MD [address] [place] [address] [address] [place] [address] [email or web address] PCP - General Family Medicine 11/14/24 Merna Mills MD [address] [place] [address] [email or web address] Family Medicine 12/29/17 Nati Minor MD [address] [facility], [address] [place] [address] [email or web address] Historical LMR Provider 01/27/17 documented as of this encounter Additional Source Comments The information contained in this document represents components of the legal health record. It is not the complete legal health record.[facility]
--- OUTSIDE RECORDS SUMMARY | 2025-02-14 17:29 | XMS_ITS | Encounter Summary ---
Author Organization [facility] Address [address] [facility] [address] [place] [address] Phone Care Team Providers Care Char Puller Name Role Phone Merna Mills MD Primary Care Provider + Merna Mills MD Unavailable [phone] Nati Minor MD Unavailable [phone] Enriqueta Zhu MD Primary Care Provider [phone] Enriqueta Zhu MD Primary Care Provider [phone] Encounter Details Date Type Department Care Team (Late st Contact Info) Description 01/18/2018 [facility] [place] [address] Merna Mills MD [address] [place] [id number] [email or web address] Other specified hypothyroidism (Primary Dx) Social History Tobacco Use Types [...] documented as of this encounter Results * TSH (01/18/2018 9:34 AM EDT) TSH 3.12 0.27 - 4.20 uIU/mL [facility] Blood 01/18/2018 9:34 AM EDT 01/18/2018 9:35 AM EDT Merna Mills MD LAB BLOOD BKR ORDERABLES Final Result [facility] [address] [place] [address] documented in this encounter Visit Diagnoses Diagnosis Other specified hypothyroidism- Primary documented in this encounter Additional Health Concerns Infection Onset Date Last Indicated Resolved Time Resp-Risk 02/14/2025 02/14/2025 documented as of this encounter Care Teams Char Puller Relationship Specialty Start Date End Date Merna Mills MD [address] [place] [address] PCP - General Family Medicine 12/29/17 05/06/22 Enriqueta Zhu MD [address] [place] [address] 7 [place] [address] [email or web address] PCP - General Family Medicine 05/07/22 11/13/24 Enriqueta Zhu MD [address] [place] [address] 7 [place] [address] [email or web address] PCP - General Family Medicine 11/14/24 Merna Mills MD [address] [place] [address] Family Medicine 12/29/17 Nati Minor MD [address] [place] [address], [address] [place] [address] Historical LMR Provider 01/27/17 documented as of this encounter Additional Source Comments The information contained in this document represents components of the legal health record. It is not the complete legal health record.[facility]
--- OUTSIDE RECORDS SUMMARY | 2025-02-14 17:29 | XMS_ITS | Encounter Summary ---
Author Organization [facility] Address [address] [facility] [address] [place] [address] Phone Care Team Providers Care Computer Art Instructor Name Role Phone Merna Mills MD Primary Care Provider + Merna Mills MD Unavailable Nati Minor MD Unavailable [phone] Enriqueta Zhu MD Primary Care Provider [phone] Enriqueta Zhu MD Primary Care Provider [phone] Encounter Details Date Type Department Care Team (Late st Contact Info) Description 08/06/2021 Transcribe Orders Virtual Department [address] [place] [address] Speedy Lee MD [address] [place] [address] Chronic neck pain (Primary Dx); Chronic pain of both ankles; Chronic foot pain, unspecified laterality Social History [...] as of this encounter Results * XR CERVICAL SPINE 2-3 VIEWS (08/12/2021 2:06 PM EDT) Anatomical Region Laterality Modality C-spine Computed Radiogr aphy 08/12/2021 3:54 PM EDT Impressions 08/12/2021 4:06 PM EDT 1. Status post fusion at C3-C4, C4-C5 C5-C6. Sclerotic and lucent changes within the endplates may be related to degenerative and post interventional changes. 2. Small-moderate size posterior osteophytes at C4-C5 and C5-C6. Multilevel facet arthropathy. Narrative 08/12/2021 4:06 PM EDT HISTORY: Chronic neck pain, status-post multilevel cervical fusion. COMPARISON: None. VIEWS: AP and lateral views. FINDINGS: Straightening of the cervical lordosis. Radiolucent disc cages in place within the intervertebral disc spaces of C3-C4, C4-C5 and C5-C6. Evidence of partial bony fusion across the disc spaces of C3-C4, C4- C5 and C5-C6. Sclerosis of the superior endplate of C4, majority of the body of C5 and superior endplate of C6. Lucent changes within the endplates at C4-C5 C5-C6. Small-moderate size posterior osteophytes at C4-C5 and C5-C6. Mild degenerative endplate changes at C6-C7 and minimally at C2-C3. Minimal spondylolisthesis of C2 on C3 and C6 on C7. No other subluxations. Evidence of multilevel facet arthropathy. Prevertebral soft tissues are normal. Procedure Note Nino Langley MD - 08/12/2021 HISTORY: Chronic neck pain, status-post multilevel cervical fusion. COMPARISON: None. VIEWS: AP and lateral views. FINDINGS: Straightening of the cervical lordosis. Radiolucent disc cages in place within the intervertebral disc spaces ofC3-C4, C4-C5 and C5-C6. Evidence of partial bony fusion across the discspaces of C3-C4, C4-C5 and C5-C6. Sclerosis of the superior endplate ofC4, majority of the body of C5 and superior endplate of C6. Lucent changeswithin the endplates at C4-C5 C5-C6. Small-moderate size posterior osteophytes at C4-C5 and C5-C6. Milddegenerative endplate changes at C6-C7 and minimally at C2-C3. Minimalspondylolisthesis of C2 on C3 and C6 on C7. No other subluxations. Evidence of multilevel facet arthropathy. Prevertebral soft tissues are normal. IMPRESSION: 1. Status post fusion at C3-C4, C4-C5 C5-C6. Sclerotic and lucent changeswithin the endplates may be related to degenerative and postinterventional changes. 2. Small-moderate size posterior osteophytes at C4-C5 and C5-C6.Multilevel facet arthropathy. us Speedy Lee MD IMG XR SPINE Final Res ult * XR ANKLE 3 OR MORE VIEWS (LEFT) (08/12/2021 2:05 PM EDT) Anatomical Region Laterality Modality Ankle Left Computed Radiogr aphy 08/12/2021 4:06 PM EDT Impressions 08/12/2021 4:12 PM EDT 1. Right ankle: Mild degenerative changes. Stable well-corticated ossific densities adjacent to the inferior aspect of the medial malleolus consistent with old injury or accessory ossicles. No other significant changes from 04/10/2021. 2. Left ankle: Mild degenerative changes. POS - [id number] Narrative 08/12/2021 4:12 PM EDT HISTORY: Bilateral ankle pain. COMPARISON: Right ankle x-ray 04/10/2021 VIEWS: 3 views of each ankle. FINDINGS: Right ankle. Well-corticated ossific densities adjacent to the inferior aspect of the medial malleolus very similar to 04/10/2021. Mild degenerative spurring at the ankle. No evidence of erosions. No acute fractures, subluxations or dislocations. No definite anterior tibiotalar joint effusion. No other significant changes. Left ankle: Mild degenerative spurring at the ankle. No evidence of erosions. No fractures, subluxations or dislocations. No evidence of an anterior tibiotalar joint effusion. Procedure Note Nino Langley MD - 08/12/2021 HISTORY: Bilateral ankle pain. COMPARISON: Right ankle x-ray 04/10/2021 VIEWS: 3 views of each ankle. FINDINGS: Right ankle. Well-corticated ossific densities adjacent to the inferioraspect of the medial malleolus very similar to 04/10/2021. Milddegenerative spurring at the ankle. No evidence of erosions. No acutefractures, subluxations or dislocations. No definite anterior tibiotalarjoint effusion. No other significant changes. Left ankle: Mild degenerative spurring at the ankle. No evidence oferosions. No fractures, subluxations or dislocations. No evidence of ananterior tibiotalar joint effusion. IMPRESSION: 1. Right ankle: Mild degenerative changes. Stable well-corticated ossificdensities adjacent to the inferior aspect of the medial malleolusconsistent with old injury or accessory ossicles. No other significantchanges from 04/10/2021. 2. Left ankle: Mild degenerative changes. POS - [email or web address] us Speedy Phoebe Lee MD IMG XR LOWER EXTREMITY Fi nal Result * XR ANKLE 3 OR MORE VIEWS (RIGHT) (08/12/2021 2:04 PM EDT) Anatomical Region Laterality Modality Ankle Right Computed Radiogr aphy 08/12/2021 4:06 PM EDT Impressions 08/12/2021 4:12 PM EDT 1. Right ankle: Mild degenerative changes. Stable well-corticated ossific densities adjacent to the inferior aspect of the medial malleolus consistent with old injury or accessory ossicles. No other significant changes from 04/10/2021. 2. Left ankle: Mild degenerative changes. POS - [email or web address] Narrative 08/12/2021 4:12 PM EDT HISTORY: Bilateral ankle pain. COMPARISON: Right ankle x-ray 04/10/2021 VIEWS: 3 views of each ankle. FINDINGS: Right ankle. Well-corticated ossific densities adjacent to the inferior aspect of the medial malleolus very similar to 04/10/2021. Mild degenerative spurring at the ankle. No evidence of erosions. No acute fractures, subluxations or dislocations. No definite anterior tibiotalar joint effusion. No other significant changes. Left ankle: Mild degenerative spurring at the ankle. No evidence of erosions. No fractures, subluxations or dislocations. No evidence of an anterior tibiotalar joint effusion. Procedure Note Nino Langley MD - 08/12/2021 HISTORY: Bilateral ankle pain. COMPARISON: Right ankle x-ray 04/10/2021 VIEWS: 3 views of each ankle. FINDINGS: Right ankle. Well-corticated ossific densities adjacent to the inferioraspect of the medial malleolus very similar to 04/10/2021. Milddegenerative spurring at the ankle. No evidence of erosions. No acutefractures, subluxations or dislocations. No definite anterior tibiotalarjoint effusion. No other significant changes. Left ankle: Mild degenerative spurring at the ankle. No evidence oferosions. No fractures, subluxations or dislocations. No evidence of ananterior tibiotalar joint effusion. IMPRESSION: 1. Right ankle: Mild degenerative changes. Stable well-corticated ossificdensities adjacent to the inferior aspect of the medial malleolusconsistent with old injury or accessory ossicles. No other significantchanges from 04/10/2021. 2. Left ankle: Mild degenerative changes. POS - [email or web address] us Speedy Phoebe Lee MD IMG XR LOWER EXTREMITY Fi nal Result * XR FOOT 3 OR MORE VIEWS (RIGHT) (08/12/2021 2:01 PM EDT) Anatomical Region Laterality [...] in this encounter Visit Diagnoses Diagnosis Chronic neck pain- Primary Cervicalgia Chronic pain of both ankles Chronic foot pain, unspecified laterality Chronic foot pain, unspecified laterality Chronic pain of both ankles Chronic pain of both ankles Chronic neck pain Cervicalgia documented in this encounter Additional Health Concerns Infection Onset Date Last Indicated Resolved Time Resp-Risk 02/14/2025 02/14/2025 documented as of this encounter Care Teams Computer Art Instructor Relationship Specialty Start Date End Date Merna Mills MD [address] [place] [address] PCP - General Family Medicine 12/29/17 05/06/22 Enriqueta Zhu MD [address] [place] [address] 7 [place] [address] [email or web address] PCP - General Family Medicine 05/07/22 11/13/24 Enriqueta Zhu MD [address] [place] [address] 7 [place] [address] [email or web address] PCP - General Family Medicine 11/14/24 Merna Mills MD [address] [place] [address] [email or web address] Family Medicine 12/29/17 Nati Minor MD [address] [place] [address], [facility] [address] [place] [address] [email or web address] Historical LMR Provider 01/27/17 documented as of this encounter Additional Source Comments The information contained in this document represents components of the legal health record. It is not the complete legal health record.[facility]
--- OUTSIDE RECORDS SUMMARY | 2025-02-14 17:29 | XMS_ITS | Encounter Summary ---
Author Organization [facility] Address [address] [place] [address] Phone Care Team Providers Care Shank Turner Name Role Phone Merna Mills MD Unavailable [phone] Nati Minor MD Unavailable [phone] Enriqueta Zhu MD Primary Care Provider [phone] Enriqueta Zhu MD Primary Care Provider [phone] Encounter Details Date Type Department Care Team (Late st Contact Info) Description 01/14/2023 Procedure Pass [facility], Ct Scan - [address] [address] Social History Tobacco Use Types Packs/Day Years [...] high school, GED, job training, learning the [place] language, technical skills, or developing parenting skills)? [...] documented as of this encounter Care Teams Shank Turner Relationship Specialty Start Date End Date Enriqueta Zhu MD [address] [place] [address] [email or web address] PCP - General Family Medicine 05/07/22 11/13/24 Enriqueta Zhu MD [address] [place] [address] 7 [place] [address] PCP - General Family Medicine 11/14/24 Merna Mills MD [address] [place] [id number] Family Medicine 12/29/17 Nati Minor MD [address] [place] [address], [facility] [address] [place] [address] [email or web address] Historical LMR Provider 01/27/17 documented as of this encounter Additional Source Comments The information contained in this document represents components of the legal health record. It is not the complete legal health record.[facility]
--- OUTSIDE RECORDS SUMMARY | 2025-02-14 17:29 | XMS_ITS | Encounter Summary ---
Author Organization [facility] Address [address] [facility] [address] [place] [address] Phone Care Team Providers Care Dental Associate Name Role Phone Merna Mills MD Primary Care Provider + Merna Mills MD Unavailable [phone] Nati Minor MD Unavailable [phone] Enriqueta Zhu MD Primary Care Provider [phone] Enriqueta Zhu MD Primary Care Provider [phone] Encounter Details Date Type Department Care Team (Late st Contact Info) Description 07/31/2021 Procedure Pass [facility] - [address] [place] [address] Social History Tobacco Use Types Packs/Day Years [...] documented as of this encounter Care Teams Dental Associate Relationship Specialty Start Date End Date Merna Mills MD [address] [place] [address] [email or web address] PCP - General Family Medicine 12/29/17 05/06/22 Enriqueta Zhu MD [address] [place] [address] 7 [place] [address] [email or web address] PCP - General Family Medicine 05/07/22 11/13/24 Enriqueta Zhu MD [address] [place] [address] 7 [place] [address] [email or web address] PCP - General Family Medicine 11/14/24 Merna Mills MD [address] [place] [address] [email or web address] Family Medicine 12/29/17 Nati Minor MD [address] [place] [address], [address] [place] [address] [email or web address] Historical LMR Provider 01/27/17 documented as of this encounter Additional Source Comments The information contained in this document represents components of the legal health record. It is not the complete legal health record.[facility]
--- OUTSIDE RECORDS SUMMARY | 2025-02-14 17:29 | XMS_ITS | Encounter Summary ---
Author Organization [facility] Address [address] [employer] [facility] [address] [place] [address] Phone Care Team Providers Care Men'S Designer Name Role Phone Merna Mills MD Primary Care Provider + Merna Mills MD Unavailable [phone] Nati Minor MD Unavailable [phone] Enriqueta Zhu MD Primary Care Provider Enriqueta Zhu MD Primary Care Provider [phone] Encounter Details Date Type Department Care Team (Late st Contact Info) Description 12/29/2017 Procedure Pass [facility], Ct Scan - [address] [address] Social History Tobacco Use Types Packs/Day Years [...] documented as of this encounter Care Teams Men'S Designer Relationship Specialty Start Date End Date Merna Mills MD [address] [place] [address] [email or web address] PCP - General Family Medicine 12/29/17 05/06/22 Enriqueta Zhu MD [address] [place] [address] 7 [place] [address] [email or web address] PCP - General Family Medicine 05/07/22 11/13/24 Enriqueta Zhu MD [address] [place] [address] 7 [place] [address] [email or web address] PCP - General Family Medicine 11/14/24 Merna Mills MD [address] [place] [address] [email or web address] Family Medicine 12/29/17 Nati Minor MD [address] [place] [address] [address] [place] [address] [email or web address] Historical LMR Provider 01/27/17 documented as of this encounter Additional Source Comments The information contained in this document represents components of the legal health record. It is not the complete legal health record.[facility]
--- OUTSIDE RECORDS SUMMARY | 2025-02-14 17:29 | XMS_ITS | Encounter Summary ---
Author Organization [facility] Address [address] [employer] [facility] [address] [place] [address] Phone Care Team Providers Care Teaseler Name Role Phone Merna Mills MD Primary Care Provider + Merna Mills MD Unavailable [phone] Nati Minor MD Unavailable [phone] Enriqueta Zhu MD Primary Care Provider [phone] Enriqueta Zhu MD Primary Care Provider [phone] Encounter Details Date Type Department Care Team (Late st Contact Info) Description 12/31/2017 Ancillary Orders [address] [place] [address] Merna Mills MD [address] [place] [address] [email or web address] Social History Tobacco Use Types Packs/Day Years [...] documented as of this encounter Care Teams Teaseler Relationship Specialty Start Date End Date Merna Mills MD [address] [place] [address] [email or web address] PCP - General Family Medicine 12/29/17 05/06/22 Enriqueta Zhu MD [address] [place] [address] 7 [place] [address] [email or web address] PCP - General Family Medicine 05/07/22 11/13/24 Enriqueta Zhu MD [address] [place] [address] 7 [place] [address] [email or web address] PCP - General Family Medicine 11/14/24 Merna Mills MD [address] [place] [address] [email or web address] Family Medicine 12/29/17 Nati Minor MD [address] [place] [address] [email or web address] Historical LMR Provider 01/27/17 documented as of this encounter Additional Source Comments The information contained in this document represents components of the legal health record. It is not the complete legal health record.[facility]
--- OUTSIDE RECORDS SUMMARY | 2025-02-14 17:29 | XMS_ITS | Encounter Summary ---
Author Organization [facility] Address [address] [facility] [address] [place] [address] Phone Care Team Providers Care Media Analyst Name Role Phone Merna Mills MD Primary Care Provider + Merna Mills MD Unavailable [phone] Nati Minor MD Unavailable [phone] Enriqueta Zhu MD Primary Care Provider [phone] Enriqueta Zhu MD Primary Care Provider [phone] Encounter Details Date Type Department Care Team (Late st Contact Info) Description 01/19/2018 Ancillary Orders Virtual Department [address] [place] [address] Merna Mills MD [address] [place] [address] [email or web address] Breast screening; Abnormal mammogram Social History Tobacco Use Types Packs/Day Years Used Date Smoking Tobacco: Never Assessed Comments No Sex and Gender Information Value Date Recorded Sex Assigned at Not on file Legal Sex Female 9:38 PM EDT Gender Identity Not on file Sexual Orientation Not on file documented as of this encounter Plan of Treatment Not on file documented as of this encounter Results * BI US BREAST LIMITED (LEFT) (01/24/2018 2:39 PM EDT) Anatomical Region Laterality Modality Breast Left, Breast Bilateral Left Ul trasound 01/24/2018 2:07 PM EDT Impressions 01/24/2018 2:46 PM EDT The appearance of mammography a believe is most consistent with asymmetric fibroglandular tissue with a probable area of apical metaplasia evident. No current findings of malignancy or other adverse features are noted. A six-month follow- up left mammogram is suggested for surveillance purposes. The results were given to the patient at the time of the examination. BI-RADS CATEGORY: 3 - Probably benign finding. Short interval follow up suggested. DENSITY: There are scattered fibroglandular densities. LEFT RECOMMENDATION DUE DATE: 6 Months Short interval follow-up S/S: Follow-up left breast densities seen on screening mammogram POS [id number] Narrative 01/24/2018 2:46 PM EDT Full field digital mammography was obtained with computer-aided detection. There is scattered fibroglandular density evident in the breast. 2-D C view images obtained as well as tomosynthesis images in two projections of the left breast. A true lateral view of the left breast is obtained as well as spot compression craniocaudad and MLO views in 2-D and 3-D acquisitions. Comparison with prior imaging from 01/18/2018 is made with older imaging dating back as far as 04/10/2011 also reviewed. The exam is performed because of possible developing densities evident on screening mammography. On the views obtained the areas of possible increased density persist but changes appearance significantly on compression spot imaging. The appearance I suspect is related to possible asymmetric fibroglandular tissue. There are no associated calcifications or skin changes seen. No architecture distortion is evident. Subsequent ultrasound of the area of concern is obtained. In the three to 4 o'clock position of the left breast approximately 4 cm the nipple there is a small cluster of microcysts evident without adverse features. This is a common appearance of apocrine metaplasia. This measures 8 mm in diameter. No other findings of note are seen in this region. Procedure Note Kvng Jackson MD - 01/24/2018 Full field digital mammography was obtained with computer-aided detection.There is scattered fibroglandular density evident in the breast. 2-D Cview images obtained as well as tomosynthesis images in two projections ofthe left breast. A true lateral view of the left breast is obtained aswell as spot compression craniocaudad and MLO views in 2-D and 3-Dacquisitions. Comparison with prior imaging from 01/18/2018 is made with older imagingdating back as far as 04/10/2011 also reviewed. The exam is performed because of possible developing densities evident onscreening mammography. On the views obtained the areas of possibleincreased density persist but changes appearance significantly oncompression spot imaging. The appearance I suspect is related to possible asymmetric fibroglandulartissue. There are no associated calcifications or skin changes seen. Noarchitecture distortion is evident. Subsequent ultrasound of the area of concern is obtained. In the three to4 o'clock position of the left breast approximately 4 cm the nipple thereis a small cluster of microcysts evident without adverse features. This donald common appearance of apocrine metaplasia. This measures 8 mm indiameter. No other findings of note are seen in this region. IMPRESSION: The appearance of mammography a believe is most consistent with asymmetricfibroglandular tissue with a probable area of apical metaplasia evident.No current findings of malignancy or other adverse features are noted. Asix-month follow-up left mammogram is suggested for surveillancepurposes. The results were given to the patient at the time of the examination. BI-RADS CATEGORY: 3 - Probably benign finding. Short interval follow upsuggested. DENSITY: There are scattered fibroglandular densities. LEFT RECOMMENDATION DUE DATE: 6 Months Short interval follow-up S/S: Follow-up left breast densities seen on screening mammogram POS [id number] us Merna Mills MD [facility] [place] Final Re sult * BI MAMMOGRAM DIAGNOSTIC WITH TOMOSYNTHESIS WITH CAD (LEFT) (01/24/2018 2:04 PM EDT) Anatomical Region Laterality Modality Breast Left Left Mammography 01/24/2018 2:07 PM EDT Impressions 01/24/2018 2:46 PM EDT The appearance of mammography a believe is most consistent with asymmetric fibroglandular tissue with a probable area of apical metaplasia evident. No current findings of malignancy or other adverse features are noted. A six-month follow- up left mammogram is suggested for surveillance purposes. The results were given to the patient at the time of the examination. BI-RADS CATEGORY: 3 - Probably benign finding. Short interval follow up suggested. DENSITY: There are scattered fibroglandular densities. LEFT RECOMMENDATION DUE DATE: 6 Months Short interval follow-up S/S: Follow-up left breast densities seen on screening mammogram POS [id number] Narrative 01/24/2018 2:46 PM EDT Full field digital mammography was obtained with computer-aided detection. There is scattered fibroglandular density evident in the breast. 2-D C view images obtained as well as tomosynthesis images in two projections of the left breast. A true lateral view of the left breast is obtained as well as spot compression craniocaudad and MLO views in 2-D and 3-D acquisitions. Comparison with prior imaging from 01/18/2018 is made with older imaging dating back as far as 04/10/2011 also reviewed. The exam is performed because of possible developing densities evident on screening mammography. On the views obtained the areas of possible increased density persist but changes appearance significantly on compression spot imaging. The appearance I suspect is related to possible asymmetric fibroglandular tissue. There are no associated calcifications or skin changes seen. No architecture distortion is evident. Subsequent ultrasound of the area of concern is obtained. In the three to 4 o'clock position of the left breast approximately 4 cm the nipple there is a small cluster of microcysts evident without adverse features. This is a common appearance of apocrine metaplasia. This measures 8 mm in diameter. No other findings of note are seen in this region. Procedure Note Kvng Jackson MD - 01/24/2018 Full field digital mammography was obtained with computer-aided detection.There is scattered fibroglandular density evident in the breast. 2-D Cview images obtained as well as tomosynthesis images in two projections ofthe left breast. A true lateral view of the left breast is obtained aswell as spot compression craniocaudad and MLO views in 2-D and 3-Dacquisitions. Comparison with prior imaging from 01/18/2018 is made with older imagingdating back as far as 04/10/2011 also reviewed. The exam is performed because of possible developing densities evident onscreening mammography. On the views obtained the areas of possibleincreased density persist but changes appearance significantly oncompression spot imaging. The appearance I suspect is related to possible asymmetric fibroglandulartissue. There are no associated calcifications or skin changes seen. Noarchitecture distortion is evident. Subsequent ultrasound of the area of concern is obtained. In the three to4 o'clock position of the left breast approximately 4 cm the nipple thereis a small cluster of microcysts evident without adverse features. This donald common appearance of apocrine metaplasia. This measures 8 mm indiameter. No other findings of note are seen in this region. IMPRESSION: The appearance of mammography a believe is most consistent with asymmetricfibroglandular tissue with a probable area of apical metaplasia evident.No current findings of malignancy or other adverse features are noted. Asix-month follow-up left mammogram is suggested for surveillancepurposes. The results were given to the patient at the time of the examination. BI-RADS CATEGORY: 3 - Probably benign finding. Short interval follow upsuggested. DENSITY: There are scattered fibroglandular densities. LEFT RECOMMENDATION DUE DATE: 6 Months Short interval follow-up S/S: Follow-up left breast densities seen on screening mammogram POS [id number] us Merna Mills MD IMG MG EXAMS Final Re sult documented in this encounter Visit Diagnoses Diagnosis Breast screening Breast screening, unspecified Abnormal mammogram Abnormal mammogram, unspecified Breast screening Breast screening, unspecified Abnormal mammogram Abnormal mammogram, unspecified documented in this encounter Additional Health Concerns Infection Onset Date Last Indicated Resolved Time Resp-Risk 02/14/2025 02/14/2025 documented as of this encounter Care Teams Media Analyst Relationship Specialty Start Date End Date Merna Mills MD [address] [place] [id number] PCP - General Family Medicine 12/29/17 05/06/22 Enriqueta Zhu MD [address] [facility] 7 [place] [address] [email or web address] PCP - General Family Medicine 05/07/22 11/13/24 Enriqueta Zhu MD [address] [facility] 7 [place] [address] [email or web address] PCP - General Family Medicine 11/14/24 Merna Mills MD [address] [place] [address] [email or web address] Family Medicine 12/29/17 Nati Minor MD [address] [place] [address], [address] [place] [address] [email or web address] Historical LMR Provider 01/27/17 documented as of this encounter Additional Source Comments The information contained in this document represents components of the legal health record. It is not the complete legal health record.[facility]
--- OUTSIDE RECORDS SUMMARY | 2025-02-14 17:29 | XMS_ITS | Encounter Summary ---
Author Organization [facility] Address [address] [place] [address] Phone Care Team Providers Care Milk Vendor Name Role Phone Merna Mills MD Unavailable [phone] Nati Minor MD Unavailable [phone] Enriqueta Zhu MD Primary Care Provider [phone] Enriqueta Zhu MD Primary Care Provider [phone] Encounter Details Date Type Department Care Team (Late st Contact Info) Description 01/14/2023 Procedure Pass [facility], [address] [place] [address] Social History Tobacco Use Types Packs/Day Years [...] high school, GED, job training, learning the Khmer language, technical skills, or developing parenting skills)? [...] documented as of this encounter Care Teams Milk Vendor Relationship Specialty Start Date End Date Enriqueta Zhu MD [address] [place] [address] PCP - General Family Medicine 05/07/22 11/13/24 Enriqueta Zhu MD [address] [place] [address] 7 [place] [address] [email or web address] PCP - General Family Medicine 11/14/24 Merna Mills MD [address] [place] [id number] Family Medicine 12/29/17 Nati Minor MD [address] [place] [address], [address] [place] [address] [email or web address] Historical LMR Provider 01/27/17 documented as of this encounter Additional Source Comments The information contained in this document represents components of the legal health record. It is not the complete legal health record.[facility]
--- OUTSIDE RECORDS SUMMARY | 2025-02-14 17:29 | XMS_ITS | Encounter Summary ---
Author Organization [facility] Address [address] [facility] [address] [place] [address] Phone Care Team Providers Care Medical Territory Manager Name Role Phone Merna Mills MD Primary Care Provider + Merna Mills MD Unavailable [phone] Nati Minor MD Unavailable [phone] Enriqueta Zhu MD Primary Care Provider [phone] Enriqueta Zhu MD Primary Care Provider [phone] Encounter Details Date Type Department Care Team (Late st Contact Info) Description 05/01/2019 Ancillary Orders Virtual Department 30 [place] [address] Merna Mills MD [address] [place] [address] [email or web address] Breast screening Social History Tobacco Use Types [...] as of this encounter Results * BI MAMMOGRAM SCREENING WITH TOMOSYNTHESIS WITH CAD (BILATERAL) (05/12/2019 9:27 AM EST) Anatomical Region Laterality Modality Breast Left, Breast Right, Breast Bilateral Bila teral Mammography 05/12/2019 9:55 AM EST Impressions 05/12/2019 9:58 AM EST No mammographic change indicative of malignancy. Annual screening is recommended. BI-RADS CATEGORY: 1 - Negative. DENSITY: There are scattered fibroglandular densities. POS -CDHMAMA Narrative 05/12/2019 9:58 AM EST Bilateral full-field digital screening mammography is obtained and read in conjunction with computer-aided detection. Tomosynthesis as well as 2-D C view imaging of both breasts in two planes also obtained. Comparison made to multiple prior, most recent January 18, 2018, and most remote May 20, 2012. No dominant mass, architectural distortion, worrisome asymmetry, or suspicious calcification is identified. No skin or nipple finding of concern is appreciated. Procedure Note Azra Kimble MD - 05/12/2019 Bilateral full-field digital screening mammography is obtained and read inconjunction with computer-aided detection. Tomosynthesis as well as 2-D Cview imaging of both breasts in two planes also obtained. Comparison madeto multiple prior, most recent January 18, 2018, and most remote 2012. No dominant mass, architectural distortion, worrisome asymmetry, orsuspicious calcification is identified. No skin or nipple finding ofconcern is appreciated. IMPRESSION: No mammographic change indicative of malignancy. Annual screening isrecommended. BI-RADS CATEGORY: 1 - Negative. DENSITY: There are scattered fibroglandular densities. POS -CDHMAMA us Merna Mills MD IMG MG EXAMS Final Re sult documented in this encounter Visit Diagnoses Diagnosis Breast screening Breast screening, unspecified Breast screening Breast screening, unspecified documented in this encounter Additional Health Concerns Infection Onset Date Last Indicated Resolved Time Resp-Risk 02/14/2025 02/14/2025 documented as of this encounter Care Teams Medical Territory Manager Relationship Specialty Start Date End Date Merna Mills MD [address] [place] [address] [email or web address] PCP - General Family Medicine 12/29/17 05/06/22 Enriqueta Zhu MD [address] [place] [address] 7 [place] [address] [email or web address] PCP - General Family Medicine 05/07/22 11/13/24 Enriqueta Zhu MD [address] [place] [address] [email or web address] PCP - General Family Medicine 11/14/24 Merna Mills MD [address] [place] [address] [email or web address] Family Medicine 12/29/17 Nati Minor MD [address] [place] [address] [email or web address] Historical LMR Provider 01/27/17 documented as of this encounter Additional Source Comments The information contained in this document represents components of the legal health record. It is not the complete legal health record.[facility]
--- OUTSIDE RECORDS SUMMARY | 2025-02-14 17:29 | XMS_ITS | Encounter Summary ---
Author Organization [facility] Address [address] [facility] [address] [place] [address] Phone Care Team Providers Care Commanding Officer Homicide Squad Name Role Phone Merna Mills MD Primary Care Provider + Merna Mills MD Unavailable [phone] Nati Minor MD Unavailable [phone] Enriqueta Zhu MD Primary Care Provider [phone] Enriqueta Zhu MD Primary Care Provider [phone] Encounter Details Date Type Department Care Team (Late st Contact Info) Description 07/31/2021 Transcribe Orders Virtual Department [address] [place] [address] Merna Mills MD [address] [place] [address] [email or web address] Breast screening (Primary Dx) Social History Tobacco Use Types [...] Negative. DENSITY: There are scattered fibroglandular densities. us Merna Mills MD IMG MG EXAMS Final Re sult documented in this encounter Visit Diagnoses Diagnosis Breast screening- Primary Breast screening, unspecified Breast screening Breast screening, unspecified documented in this encounter Additional Health Concerns Infection Onset Date Last Indicated Resolved Time Resp-Risk 02/14/2025 02/14/2025 documented as of this encounter Care Teams Commanding Officer Homicide Squad Relationship Specialty Start Date End Date Merna Mills MD [address] [place] [address] [email or web address] PCP - General Family Medicine 12/29/17 05/06/22 Enriqueta hZu MD [address] [place] [address] 7 [place] [address] [email or web address] PCP - General Family Medicine 05/07/22 11/13/24 Enriqueta Zhu MD [address] [place] [address] 7 [place] [address] [email or web address] PCP - General Family Medicine 11/14/24 Merna Mills MD [address] [place] [address] [email or web address] Family Medicine 12/29/17 Nati Minor MD [address] [place] [address], [address] [place] [address] [email or web address] Historical LMR Provider 01/27/17 documented as of this encounter Additional Source Comments The information contained in this document represents components of the legal health record. It is not the complete legal health record.[facility]
== END 2025-02-14 15:12 | disposition home or self-care (01) ==
LOC: HO.RHES 14:14
PROVIDERS: PCP Family Medicine; Visit Provider Internal Medicine Rheumatology
DX: M79.641 Pain in right hand (principal); M79.642 Pain in left hand; M18.0 Bilateral primary osteoarthritis of first carpometacarpal joints; G56.03 Carpal tunnel syndrome, bilateral upper limbs; M17.0 Bilateral primary osteoarthritis of knee; Q79.60 Ehlers-Danlos syndrome, unspecified; Z79.1 Long term (current) use of non-steroidal anti-inflammatories (NSAID)
CPT/HCPCS: 99214; G2211